=== PATIENT | male | born 1945 | race Caucasian/White ===

== ENCOUNTER 2020-03-19 14:06 | Outpatient (CLI) | payer MEDICARE, SELFPAY ==
--- NOTE | ~2020-03-19 | XR_ITS ---
EXAMINATION: XR foot RT min 3V DATE: 03/19/2020 14:42 INDICATION: Hallux valgus of right foot. TECHNIQUE: 3 views of right foot were obtained. COMPARISON: None. FINDINGS: There is moderate hallux valgus. No fracture. There is moderate osteoarthritis of first met atarsophalangeal joint and mild osteoarthritis of some of the midfoot joints and interphalangeal join ts. There are enthesophytes at the posterior and plantar aspects of calcaneal tuberosity. IMPRESSION: 1. Moderate hallux valgus. 2. Polyarticular osteoarthritis. Reviewed, dictated and finalized at location A. UITWARE BRUSHER
== END 2020-03-19 14:07 | disposition home or self-care (01) ==
LOC: CHSIMG 14:12
PROVIDERS: PCP Internal Medicine; Visit Provider Podiatrist
DX: M20.11 Hallux valgus (acquired), right foot (principal)
CPT/HCPCS: 73630

== ENCOUNTER 2020-04-02 10:45 | Outpatient (CLI) | payer MEDICARE, SELFPAY ==
--- NOTE | ~2020-04-02 | XR_ITS ---
EXAMINATION: XR chest 2V DATE: 04/02/2020 11:12 INDICATION: Hypertension. Preop. TECHNIQUE: Frontal and lateral views of the chest were obtained on 3 radiographs. COMPARISON: None. FINDINGS: A calcified left lung nodule and calcified left hilar lymph nodes are consistent with old g ranulomatous disease. No pleural effusion or pneumothorax. The heart size is normal. IMPRESSION: 1. No acute cardiopulmonary disease. Reviewed, dictated and finalized at location A. NEERING AND OPERATIONS DIRECTOR
--- NOTE | 2020-04-02 11:05 | ECG_ITS ---
Measurements Intervals [place] Rate: 52 P: 54 WI: 170 QRS: 34 QRSD: 116 T: 11 QT: 434 QTc: 406 Interpretive Statements SINUS BRADYCARDIA RSR' IN V1 OR V2, CONSIDER RIGHT VENTRICULAR HYPERTROPHY OR RIGHT VCD BORDERLINE ECG Electronically Signed On 04-02-2020 11:33:33 MANUFACTURING ASSOCIATE by Jackson Emmanuel D.O.
== END 2020-04-02 10:46 | disposition home or self-care (01) ==
PROVIDERS: PCP Internal Medicine; Visit Provider Internal Medicine
DX: Z01.818 Encounter for other preprocedural examination (principal); I10 Essential (primary) hypertension
CPT/HCPCS: 71046; 93005

== ENCOUNTER 2020-05-09 10:27 | Outpatient (CLI) | payer MEDICARE, SELFPAY ==
--- NOTE | ~2020-05-09 | XR_ITS ---
EXAMINATION: XR foot RT min 3V EXAM DATE: 05/09/2020 10:53 INDICATION: Post Op Bunion. TECHNIQUE: Right foot dorsoplantar, lateral and oblique projections obtained and reviewed. Compariso n is made to prior examination from 03/19/2020. FINDINGS: Interval surgical changes about the right 1st metatarsophalangeal joint with osteotomies a nd fixation hardware, bunionectomy. There is moderate 1st MTP primary osteoarthritis. There are no b summer erosions identified. IMPRESSION: Right 1st MTP surgical changes. Reviewed, dictated and finalized at location B. SS SERVICES REPRESENTATIVE
== END 2020-05-09 10:28 | disposition home or self-care (01) ==
LOC: CHSIMG 10:29
PROVIDERS: PCP Internal Medicine; Visit Provider Podiatrist
DX: M79.671 Pain in right foot (principal); M20.11 Hallux valgus (acquired), right foot
CPT/HCPCS: 73630

== ENCOUNTER 2020-06-08 10:18 | Outpatient (CLI) | payer MEDICARE, SELFPAY ==
--- NOTE | ~2020-06-08 | XR_ITS ---
EXAMINATION: XR foot RT min 3V EXAM DATE: 06/08/2020 10:47 INDICATION: Post bunion removal 04/24/20. TECHNIQUE: Right foot dorsoplantar, lateral and oblique projections obtained and reviewed. Compariso n is made to prior examination from 05/09/2020. FINDINGS: There is continued interval healing of the right 1st metatarsal bunionectomy, osteotomy. Th e 2 screws bridging the site are intact. There is also proximal phalangeal osteotomy with supporting clips. There is mild to moderate 1st metatarsophalangeal joint primary osteoarthritis. There are no b summer erosions identified. IMPRESSION: Surgical changes right 1st MTP region, with continued interval healing. Reviewed, dictated and finalized at location A. HT RADIO OFFICER IMPRESSION: Surgical changes right 1st MTP region, with continued interval hea ling.
== END 2020-06-08 10:19 | disposition home or self-care (01) ==
LOC: CHSIMG 10:19
PROVIDERS: PCP Internal Medicine; Visit Provider Podiatrist
DX: Z98.890 Other specified postprocedural states (principal); M21.6X1 Other acquired deformities of right foot
CPT/HCPCS: 73630

== ENCOUNTER 2020-11-26 10:21 | Outpatient (CLI) | payer MEDICARE, SELFPAY ==
--- NOTE | ~2020-11-26 | US_ITS ---
EXAMINATION: US carotid duplex BI DATE: 11/26/2020 10:45 INDICATION: Carotid bruit TECHNIQUE: Grayscale, color Doppler, and pulsed Doppler images of the cervical carotid arteries were obtained. The degree of vessel stenosis is placed in one of the following categories: normal, <50%, 5 0-69%, >=70% but less than near-occlusion, near-occlusion, or total occlusion. Note that percent sten osis relative to normal distal artery lumen diameter is indirectly measured from velocity measurement s as described by Ronn, et al. Radiology 2003; [id number]:340-346. COMPARISON: None. FINDINGS: RIGHT: The right common carotid artery (CCA) peak systolic velocity (PSV) is 95 cm/s. The right internal car otid artery (ICA) PSV is 80 cm/s. The right ICA end-diastolic velocity (EDV) is 16 cm/s. The right IC A/CCA PSV ratio is 0.8. Grayscale and color Doppler images yield an estimate of <50% diameter reducti on from plaque in the ICA. The external carotid artery (ECA) PSV is 71 cm/s. There is antegrade flow in the right vertebral artery. LEFT: The left CCA PSV is 126 cm/s. The left ICA PSV is 79 cm/s. The left ICA EDV is 12 cm/s. The left ICA/ CCA PSV ratio is 0.6. Grayscale and color Doppler images yield an estimate of <50% diameter reduction from plaque in the ICA. The ECA PSV is 94 cm/s. There is antegrade flow in the left vertebral artery . IMPRESSION: 1. <50% stenosis from minimal plaque in the right internal carotid artery. 2. <50% stenosis from minimal plaque in the left internal carotid artery. Reviewed, dictated and finalized at location A.
== END 2020-11-26 10:22 | disposition home or self-care (01) ==
LOC: CHSIMG 10:23
PROVIDERS: PCP Internal Medicine; Visit Provider Internal Medicine
DX: R09.89 Other specified symptoms and signs involving the circulatory and respiratory systems (principal)
CPT/HCPCS: 93880

== ENCOUNTER 2020-12-05 09:51 | Outpatient (CLI) | payer MEDICARE, SELFPAY ==
--- NOTE | ~2020-12-05 | US_ITS ---
EXAMINATION: US retroperitoneal comp EXAM DATE: 12/05/2020 10:17 INDICATION: Chronic kidney disease. TECHNIQUE: Multiple grayscale and Doppler images of the kidneys were obtained (by a technologist who performed the scan) and subsequently reviewed. There is no prior study for comparison. FINDINGS: Right kidney: There is normal contour and echogenicity. It measures 10.9 x 4.5 x 5.2 centimeters. T here are no focal renal lesions identified. There is no hydronephrosis. Left kidney: There is normal contour and echogenicity. It measures 10.8 x 4.3 x 4.9 centimeters. Th ere are no focal renal lesions identified. There is no hydronephrosis. Bladder unremarkable. Prevoid bladder volume 87 mL, postvoid bladder volume 37 mL. IMPRESSION: 1. Sonographically unremarkable kidneys. 2. Small amount of post void residual. Reviewed, dictated and finalized at location A.
== END 2020-12-05 09:52 | disposition home or self-care (01) ==
LOC: CHSIMG 09:54
PROVIDERS: PCP Internal Medicine; Visit Provider Internal Medicine
DX: N18.2 Chronic kidney disease, stage 2 (mild) (principal); N40.0 Benign prostatic hyperplasia without lower urinary tract symptoms
CPT/HCPCS: 76770

== ENCOUNTER 2022-06-12 14:49 | Outpatient (CLI) | payer MEDICARE, SELFPAY ==
--- NOTE | ~2022-06-12 | XR_ITS ---
EXAMINATION: XR wrist LT min 3V DATE: 06/12/2022 15:09 INDICATION: Left wrist pain with lump at the lateral left wrist TECHNIQUE: Posteroanterior, ulnar deviation, oblique, and lateral views of the left wrist were obtain ed. COMPARISON: none FINDINGS: Alignment is normal. No fracture. Polyarticular osteoarthritis at the left wrist and visualized hand, severe at the first carpometacarpal joint and otherwise mild. Mild soft tissue swelling along the ul kirstie aspect of the distal forearm. IMPRESSION: 1. Polyarticular osteoarthritis, severe at the first carpometacarpal joint and otherwise mild. Reviewed, dictated and finalized at location L. NSING ENGINEER
== END 2022-06-12 14:50 | disposition home or self-care (01) ==
LOC: CHSIMG 14:53
PROVIDERS: PCP Internal Medicine; Visit Provider Nurse Practitioner Family
DX: M25.532 Pain in left wrist (principal); M19.032 Primary osteoarthritis, left wrist
CPT/HCPCS: 73110

== ENCOUNTER 2022-07-12 06:42 | Outpatient (CLI) | payer MEDICARE, SELFPAY ==
--- NOTE | ~2022-07-12 | MR_ITS ---
MRI of the left wrist Technique: Coronal proton-density and proton density fat sat images, and axial and sagittal proton-de nsity and proton-density fat-sat images were acquired. Clinical History: Posterior wrist pain Findings: Scapholunate ligament is intact, and there is no widening of the scapholunate interval. Cee otriquetral ligament is intact. TFCC appears intact. There is moderate degenerative change at the first CMC joint. There is probable enchondroma at the pr oximal first metacarpal shaft. No endosteal scalloping or pathologic fracture evident. Remaining bone marrow signals are unremarkable. Remaining joint spaces are preserved. Flexor and extensor tendons are intact. There is soft tissue edema over the dorsal, ulnar aspect of t he wrist. Small distal radial ulnar joint effusion present, probable mild degenerative change. IMPRESSION: Small distal radial ulnar joint effusion with soft tissue edema over the dorsal, ulnar aspect of the wrist. These findings are somewhat nonspecific. Probable mild degenerative change at the DRUJ. Moderate osteoarthritis of the first CMC joint. Probable enchondroma of the proximal first metacarpal shaft. Reviewed, dictated and finalized at location . CE PROFESSIONAL IMPRESSION: Small distal radial ulnar joint effusion with soft tissue edema over the dorsal , ulnar aspect of the wrist. These findings are somewhat nonspecific. Probable mild degenerative change at the DRUJ. Moderate osteoarthritis of the first CMC joint. Probable enchondroma of the proximal first metacarpal shaft.
== END 2022-07-12 06:43 | disposition home or self-care (01) ==
PROVIDERS: PCP Internal Medicine; Visit Provider Internal Medicine
DX: M25.532 Pain in left wrist (principal); M25.432 Effusion, left wrist; M79.89 Other specified soft tissue disorders
CPT/HCPCS: 73221

== ENCOUNTER 2022-12-22 14:34 | Outpatient (CLI) | payer MEDICARE, SELFPAY ==
--- NOTE | 2022-12-22 14:41 | ECHO_ITS ---
Patient Info Name: Antelmo Martínez Age: 77 years : 1945 Gender: Male Ht: 71 in Wt: 234 lbs BSA: 2.34 m2 HR: 74 bpm BP: 161 / 93 mmHg Heart Rhythm: Atrial Fibrillation Technical Quality: Good Exam Date: 12/22/2022 2:34 PM Exam Location: [facility], [place] Patient Status: Outpatient Admit Date: 12/22/2022 Staff Ordering Physician: Kaden Green MD Manager Retention: Tenisha Rodriguez RDCS Attending Provider: Kaden Green MD Referring Physician: Peter AMADO; Exam Type: CA echo doppler color flow Study Info Indications - new onset A fib Complete two-dimensional, color flow and Doppler transthoracic echocardiogram is performed. Summary 1. Complete two-dimensional, color flow and Doppler transthoracic echocardiogram is performed. 2. Left ventricular chamber dimension is mildly enlarged. 3. Left ventricular systolic function is normal, estimated at 60-65%. 4. The left ventricular diastolic function is normal. 5. E/e' 6 is not elevated. 6. Atrial fibrillation. 7. Left atrial chamber dimension is moderately enlarged. 8. There is mild aortic valve sclerosis. 9. There is mild aortic valve regurgitation. 10. There is mild to moderate mitral valve regurgitation. 11. There is mild tricuspid valve regurgitation. 12. No pulmonary hypertension, estimated pulmonary arterial systolic pressure is 27 mmHg. 13. There is trace pulmonic regurgitation. Left Ventricle E/e' 6 is not elevated. Atrial fibrillation. Left ventricular chamber dimension is mildly enlarged. Left ventricular systolic function is normal, estimated at 60-65%. The left ventricular diastolic function is normal. Right Ventricle Right ventricular systolic function is normal and with normal TAPSE 2.7 cm. Right ventricular chamber dimension is normal. Left Atria Left atrial chamber dimension is moderately enlarged. Right Atria Right atrial chamber dimension is normal. Aortic Valve The aortic valve is trileaflet. There is mild aortic valve sclerosis. There is no aortic valve stenosis. There is mild aortic valve regurgitation. Pulmonic Valve There is trace pulmonic regurgitation. Mitral Valve There is no mitral valve stenosis. There is mild to moderate mitral valve regurgitation. Tricuspid Valve There is mild tricuspid valve regurgitation. No pulmonary hypertension, estimated pulmonary arterial systolic pressure is 27 mmHg. Pericardium/Pleural There is no pericardial effusion. Inferior Vena Cava Normal inferior vena cava with >50% collapse upon inspiration consistent with normal right atrial pressure, 5 mmHg. Aorta The aortic root size at the sinus of Valsalva is normal. Left Ventricular Outflow Tract Name Value Normal LVOT 2D LVOT Diameter 2.2 cm LVOT Doppler LVOT Peak Velocity 79 cm/s LVOT Peak Gradient 2 mmHg LVOT Mean Gradient 1 mmHg LVOT VTI 19 cm LVOT VTI/AV VTI Ratio 0.6 LVOT Stroke Volume 70 ml Pulmonic Valve Name Value Normal -------
== END 2022-12-22 14:35 | disposition home or self-care (01) ==
LOC: CHSIMG 14:35
PROVIDERS: PCP Internal Medicine; Visit Provider Internal Medicine
DX: I48.91 Unspecified atrial fibrillation (principal); I08.3 Combined rheumatic disorders of mitral, aortic and tricuspid valves
CPT/HCPCS: 93306

== ENCOUNTER 2023-04-27 03:55 | Day surgery (SDC) | payer MEDICARE, SELFPAY ==
--- NOTE | 2023-04-27 08:30 | ECG_ITS ---
Measurements Intervals [place] Rate: 52 P: MA: 0 QRS: 0 QRSD: 118 T: 21 QT: 460 QTc: 430 Interpretive Statements ATRIAL FIBRILLATION WITH SLOW VENTRICULAR RESPONSE MODERATE INTRAVENTRICULAR CONDUCTION DELAY [110+ ms QRS DURATION] ABNORMAL ECG COMPARED TO ECG 04/02/2020 11:03:45 ATRIAL FIBRILLATION NOW PRESENT INTRAVENTRICULAR CONDUCTION DELAY NOW PRESENT Electronically Signed On 04-27-2023 12:47:06 IT PROJECT MANAGER by Jak Orlando M.D.
[2023-04-27 08:45] VITALS: BP 123/89; PULSE 52; RESP 16; TEMP 36.3; O2SAT 98; BMI 32.1
[2023-04-27 09:13] LABS: Anion Gap 9 mmol/L (8-16); Blood Urea Nitrogen 28 mg/dL (9-20); Calcium 9.5 mg/dL (8.4-10.2); Carbon Dioxide 26 mmol/L (22-30); Chloride 107 mmol/L (98-107); Estimated CRCL calculation 49 ml/min; Estimated Glomerular Filt Rate 46; Glucose 97 mg/dL (65-110); Magnesium 2.2 mg/dL (1.6-2.3); Potassium 4.6 mmol/L (3.4-5.0); Sodium 142 mmol/L (137-145)
--- NOTE | 2023-04-27 10:13 | SUR.OPER ---
MD reviewed home medications and spoke with patient and spouse. HR & rhythm is Afib in 40-60s with stable BP. MD discussing risks vs benefits since patient has no symptoms. MD decided to cancel cardioversion after talking to patient since the Afib isn't affecting his daily life. Patient will be discharged home. No sedation medication given.
--- NOTE | 2023-04-27 10:33 | WPDMODSED ---
Moderate Sedation Note-Pt Data Patient Data Diagnosis: Atrial fibrillation Present Complaint: Atrial fibrillation Procedure to be performed/Plan: Cardioversion Allergies Allergy/AdvReac Type Severity Reaction Status Date / Time hydralazine AdvReac Cramping Verified 04/27/23 08:42 of the Muscles Home Medications Medication Instructions Recorded Confirmed Type amlodipine 10 mg tablet 10 mg PO DAILY 04/24/23 04/24/23 History apixaban 5 mg tablet (Eliquis) 5 mg PO BID 04/24/23 04/24/23 History coenzyme Q10 200 mg capsule (Co 200 mg PO DAILY 04/24/23 04/24/23 History Q-10) geriatric multivitamin-min 1 tablet PO DAILY 04/24/23 04/24/23 History indapamide 1.25 mg tablet 1.25 mg PO EVERY OTHER DAY 04/24/23 04/24/23 History losartan 100 mg tablet 100 mg PO DAILY 04/24/23 04/24/23 History nebivolol 20 mg tablet 40 mg PO DAILY 04/24/23 04/24/23 History omega 5-lgm-pjv-fish oil 1,200 mg 2 cap PO DAILY 04/24/23 04/24/23 History (144 mg-216 mg) capsule (Fish Oil) pravastatin 40 mg tablet 40 mg PO HS 04/24/23 04/24/23 History Sedation/Anesthesia: No previous sedation/anesthesia problems (including family history). [facility] Family History Family History (Updated 06/27/16 @ 10:29 by DOCTOR UNKNOWN) Other Family history of elevated blood lipids Hypertension Social History Social History Smoking packs per day: 1 Smoking cigarettes per day: 20.0 Years smoked: 40 Smoking pack-years: 40.00 Smoking status: Former smoker Tobacco type: cigarettes Smoking end date: 05/18/82 Alcohol intake: never Substance use: never Substance use type: does not use Living arrangements: with family Spiritual care concerns: No Mod Sed Physical Exam Physical Exam Pre Procedural Exam: Normal: Appearance, Eyes, Ears, Nose, Neck, Throat, Airway, Lungs, Heart Size, Neuro Exam, Extremities and Skin and Variation: Heart Rate (Bradycardia) and Heart Rhythm (Irregularly irregular) Hours since solid foods: 12 Hours since liquid intake: 12 Mallampati Classification: class II Internal Medicine - PN: Obj Da Vital Signs Vital Signs: Vital Signs - 24 hr 04/27/23 08:45 Temperature 36.3 C L Pulse Rate 52 L Respiratory Rate 16 Blood Pressure 123/89 Pulse Oximetry 98 Oxygen Delivery Room Air Labs 04/27/23 08:56 Labs: Laboratory Results - last 24 hr 04/27/23 08:56 Sodium 142 Potassium 4.6 Chloride 107 Carbon Dioxide 26 Anion Gap 9 BUN 28 H Creatinine 1.50 H Estim Creat Clear Calc 49 Estimated GFR 46 L Glucose 97 Calcium 9.5 Magnesium 2.2 ASA Classification/Sedation ASA Classification/Sedation ASA Class: II Emergent: No Risks: Risks, benefits and alternatives explained and patient/family accepted plan for sedation. Patient re-evaluated immediately prior to sedation. Update H&P: Patient is completely asymptomatic. He does have some bradycardia with heart rates in the 40s and 50s. He is on nebivolol only. He has no signs or symptoms of heart failure and is active and not having any issues otherwise of bradycardia. Heart rate is well controlled obviously and there is concern that attempted cardioversion may cause significant complication including severe/marked bradycardia or even asystole. Because he is asymptomatic and his need for anticoagulation will not change whether not cardiovert him or not, 80 talk to him as well as the patient's family and decision is made to abort cardioversion at this point. He is comfortable with this decision
== END 2023-04-27 10:30 | disposition home or self-care (01) ==
PROVIDERS: PCP Internal Medicine; Visit Provider Internal Medicine Cardiovascular Disease
PROC: 5A2204Z Restoration of Cardiac Rhythm, Single (ICD-10-PCS; principal; 2023-04-27 10:00)
DX: I48.91 Unspecified atrial fibrillation (principal); I10 Essential (primary) hypertension; Z79.01 Long term (current) use of anticoagulants; Z53.8 Procedure and treatment not carried out for other reasons
CPT/HCPCS: 36415; 80048; 83735; 92960; 99213; G0463; J0461; J2250; J3010; J7030

== ENCOUNTER 2023-05-27 09:09 | Outpatient (CLI) | payer MEDICARE, SELFPAY ==
--- NOTE | 2023-06-18 16:01 | WPDSLEEPSTUD ---
Sleep Study Date of Study: 05/27/23 Ordering Provider: Farzad Barth APRN Interpreting Physician: Mercy Saunders MD Sleep Study Type: CPAP Titration Height: 1.85 m Weight: 106.594 kg Body Mass Index: 30.9 Neck Circumference (inches): 17 [place]: 8 Reason for Sleep Study Obstructive sleep apnea, cannot tolerate auto PAP which he used for a month and quit due to sensation of suffocation He presents now for a CPAP titration. * 01/28/2023, [place] home sleep test, AHI 18.7, 25 obstructive, 34 central, 1 mixed, 93 hypopneas, 39 minutes spent below 90%, lowest 83% average 93%. Sleep History Antelmo Martínez is a 77-year-old man with ANTHONY diagnosed on a [facility] sleep test, was not able to tolerate using autoPAP because he felt like he was suffocating. He was having problems controlling his blood pressure but with increased medication, his blood pressure improved. There is a family history of sleep issues, his brother uses CPAP and his brother also had heart problems. The patient does not awaken from sleep feeling short of breath. He rarely awakens at night with heartburn, belching or coughing. He occasionally snores and occasionally this is loud enough that others complain about it. He occasionally has difficulty sleeping when he has a cold. He does not wake up gasping for breath at night or have breathing problems at night reported to him by others. He does not sweat excessively at night or notice his heart pounding or beating irregularly at night. He rarely falls asleep during the day, never falls asleep involuntarily or while driving. He does not have loss of muscle tone with strong emotion. He does not have daytime difficulties due to excessive sleepiness. He is retired. He does not feel paralyzed on waking or falling asleep nor does he have vivid dreamlike scenes upon awakening or falling asleep. He does not feel afraid to go to sleep. He rarely has nightmares. He rarely recalls his dreams. He occasionally has racing thoughts. He does not feel sad or depressed. He rarely has anxiety. He does not notice parts of his body jerking nor does he kick at night. He does not have crawling or aching feelings in his legs. He does not have any kind of leg pain at night. He does not have morning jaw pain. He does not grind his teeth during sleep. He is not bothered by pain during the day nor is he awakened by pain during the night. He rarely wakes up feeling stiff in the morning, rarely wakes up with sore achy muscles or pain in the neck and spine. Normal bedtime is 10:30 p.m., he is not certain how long it takes him to fall asleep but he does typically wake twice during the night to go to the bathroom. He is able to return to sleep quickly. His normal wake time is 7:00 a.m.. He keeps the same schedule on weekends. He estimates getting 8 hours of sleep at night. He sometimes takes naps in the afternoon or evening. He may feel refreshed after short nap lasting 10 or 15 minutes. He usually awakens feeling refreshed. He rarely has a morning headache and he rarely has heartburn at night. Habits: Quit tobacco 30 years ago. Caffeine, 2 cups per day. No alcohol or recreational substances. [facility] Past Medical History Medical History Afib BPH (benign prostatic hyperplasia) CKD (chronic kidney disease) HLD (hyperlipidemia) HTN (hypertension) ANTHONY (obstructive sleep apnea) SLE (systemic lupus erythematosus) Family History Family History Other Family history of elevated blood lipids Hypertension Social History Social History Smoking packs per day: 1 Smoking cigarettes per day: 20.0 Years smoked: 40 Smoking pack-years: 40.00 Smoking status: Former smoker Tobacco type: cigarettes Smoking end date: 05/18/82 Alcohol intake: never Substance use: nev
[2023-06-18 19:31] VITALS: BMI 30.9
== END 2023-05-28 07:41 | disposition home or self-care (01) ==
PROVIDERS: PCP Internal Medicine; Visit Provider Nurse Practitioner Family
DX: G47.33 Obstructive sleep apnea (adult) (pediatric) (principal)
CPT/HCPCS: 95811

== ENCOUNTER 2024-04-11 06:00 | Day surgery (SDC) | payer MEDICARE, SELFPAY ==
[2024-03-28 10:13] VITALS: BMI 32.8
[2024-04-11 06:48] VITALS: BP 115/77; PULSE 64; RESP 16; TEMP 36.7; O2SAT 98
--- NOTE | 2024-04-11 06:52 | P.PNAN_ITS ---
Anes - Initial Pre Proc Eval Procedure: Operation Date: 04/11/24 08:15 Proposed Procedures p Screening Colonoscopy - Ascencion Chandler DO Date/Time: 04/11/24 06:52 Surgeon: Ascencion Chandler DO Pre Op Diagnosis: Neoplasm Screening Patient Data Age: 78 Gender: M Height: 1.83 m Weight: 108.95 kg Last Vital Signs Temp 36.7 C 04/11/24 06:48 Pulse 64 04/11/24 06:48 Resp 16 04/11/24 06:48 BP 115/77 04/11/24 06:48 Pulse Ox 98 04/11/24 06:48 O2 Del Method Room Air 04/11/24 06:48 Allergies Allergy/AdvReac Type Severity Reaction Status Date / Time hydralazine AdvReac Cramping Verified 04/11/24 06:46 of the Muscles Home Medications Medication Instructions Recorded Confirmed Type amlodipine 10 mg tablet 10 mg PO DAILY 04/24/23 04/11/24 History apixaban 5 mg tablet (Eliquis) 5 mg PO BID 04/24/23 04/11/24 History coenzyme Q10 200 mg capsule (Co 200 mg PO DAILY 04/24/23 04/11/24 History Q-10) indapamide 1.25 mg tablet 1.25 mg PO EVERY OTHER DAY 04/24/23 04/11/24 History losartan 100 mg tablet 100 mg PO DAILY 04/24/23 04/11/24 History omega 3-hpc-ude-fish oil 1,200 mg 2 cap PO DAILY 04/24/23 04/11/24 History (144 mg-216 mg) capsule (Fish Oil) pravastatin 40 mg tablet 40 mg PO HS 04/24/23 04/11/24 History vklqlgzl-ws-agabq 300 mcg-K 60 1 tablet PO DAILY 07/03/23 04/11/24 History mcg-lycop 600 mcg-lutein 300 mcg tablet (Centrum Silver Men) nebivolol 20 mg tablet 5 mg PO DAILY 10/13/23 04/11/24 History Patient hx anesthesia problems: none Family hx anesthesia problems: none Results Review: All pre-operative results and documents have been reviewed as part of the pre- operative evaluation. [facility] Past Medical History Medical History Afib BPH (benign prostatic hyperplasia) CKD (chronic kidney disease) HLD (hyperlipidemia) HTN (hypertension) ANTHONY (obstructive sleep apnea) SLE (systemic lupus erythematosus) Family History Family History Other Family history of elevated blood lipids Hypertension Social History Social History Smoking packs per day: 1 Smoking cigarettes per day: 20.0 Years smoked: 20 Smoking pack-years: 20.00 Smoking status: Former smoker Tobacco type: cigarettes Smoking end date: 05/18/82 Alcohol intake: never Substance use: never Substance use type: does not use Living arrangements: with family Spiritual care concerns: No Anes - Eval Final PreProcedure Day of Procedure 04/11/24 06:52 Patient weight: obese Heart: regular rate and rhythm Lungs: clear to auscultation Airway: Mallampati scale class II Neurological: alert and oriented Last oral intake: >/= 8 hours ASA classification: III Emergent: no Anesthetic plan: proceed Anesthesia type and monitoring: general GIVS and standard monitoring Results Review: All pre-operative results and documents have been reviewed as part of the pre- operative evaluation. Informed Consent: The patient's anesthetic plan and its attendant risks and benefits were discussed with the patient/family/POA. Questions were solicited and answers provided to the satisfaction of the patient/family/POA.
[2024-04-11] MEDS: LACTATED RINGERS 1,000 ML 150 ML IV CONT (06:55)
--- NOTE | 2024-04-11 08:03 | P.HP_ITS ---
H&P: HPI History of Present Illness Date/Time: 04/11/24 08:03 Chief Complaint: Screening for colorectal cancer Narrative: this is a 78-year-old man who presents for colonoscopy. His last colonoscopy was 10 years ago and was normal. He denies any hematochezia or melena. He denies any family history of colon cancer. Review of Systems Review of Systems: All systems reviewed & are unremarkable except as noted in HPI and below Constitutional: Constitutional: Denies chills, Denies fever(s), Denies headache(s) and Denies weight loss Eyes: Eyes: Denies change in vision ENT: Denies dizziness, Denies headache(s), Denies neck mass and Denies throat swelling Cardiovascular: Cardiovascular: Denies chest pain, Denies lightheadedness and Denies dyspnea Respiratory: Respiratory: Denies cough, Denies dyspnea and Denies wheezing Gastrointestinal: Gastrointestinal: Denies abdominal pain, Denies change in bowel habits, Denies nausea and Denies vomiting Genitourinary: Genitourinary: Denies hematuria and Denies dysuria Musculoskeletal: Musculoskeletal: Reports as per HPI Integumentary/Breasts: Skin/Breast: Reports as per HPI Neurologic: Denies dizziness and Denies headache(s) Allergic/Immunologic: Allergic/Immunologic: Denies throat swelling and Denies wheezing FOR[facility]LY [facility] Past Medical History Medical History Afib BPH (benign prostatic hyperplasia) CKD (chronic kidney disease) HLD (hyperlipidemia) HTN (hypertension) ANTHONY (obstructive sleep apnea) SLE (systemic lupus erythematosus) Family History Family History Other Family history of elevated blood lipids Hypertension Social History Social History Smoking packs per day: 1 Smoking cigarettes per day: 20.0 Years smoked: 20 Smoking pack-years: 20.00 Smoking status: Former smoker Tobacco type: cigarettes Smoking end date: 05/18/82 Alcohol intake: never Substance use: never Substance use type: does not use Living arrangements: with family Spiritual care concerns: No Meds Home Medications and Allergies Home Medications Medication Instructions Recorded Confirmed Type amlodipine 10 mg tablet 10 mg PO DAILY 04/24/23 04/11/24 History apixaban 5 mg tablet (Eliquis) 5 mg PO BID 04/24/23 04/11/24 History coenzyme Q10 200 mg capsule (Co 200 mg PO DAILY 04/24/23 04/11/24 History Q-10) indapamide 1.25 mg tablet 1.25 mg PO EVERY OTHER DAY 04/24/23 04/11/24 History losartan 100 mg tablet 100 mg PO DAILY 04/24/23 04/11/24 History omega 6-xbk-pmh-fish oil 1,200 mg 2 cap PO DAILY 04/24/23 04/11/24 History (144 mg-216 mg) capsule (Fish Oil) pravastatin 40 mg tablet 40 mg PO HS 04/24/23 04/11/24 History zoxrehgv-fp-hdncb 300 mcg-K 60 1 tablet PO DAILY 07/03/23 04/11/24 History mcg-lycop 600 mcg-lutein 300 mcg tablet (Centrum Silver Men) nebivolol 20 mg tablet 5 mg PO DAILY 10/13/23 04/11/24 History Allergies Allergy/AdvReac Type Severity Reaction Status Date / Time hydralazine AdvReac Cramping Verified 04/11/24 06:46 of the Muscles Vital Signs Vital Signs - 24 hr 04/11/24 06:48 Temperature 98.1 F Pulse Rate 64 Respiratory Rate 16 Blood Pressure 115/77 Pulse Oximetry 98 Oxygen Delivery Room Air Exam Const: General: no acute distress and alert Orientation/consciousness: patient oriented x3 HENMT: Head: normocephalic and atraumatic Ears: hearing grossly normal bilaterally Face/Nose/Sinus: Normal nares present Mouth: Yes Normal oral and palatal mucosa present Eyes: Periorbital: periorbital findings normal Sclera: sclerae normal EOM: EOMs intact bilaterally Neck: Neck: normal visual inspection, no lymphadenopathy and trachea midline Chest: Chest palpation & inspection: normal inspection of the chest Resp: Effort & Inspection: normal respiratory effort Auscultation: clear to auscultation bilaterally Cardio: Jugular venous distension: no JVD Rate: regular rate Rhythm: regular rhythm Heart sounds: S1 normal heart sound present and S2 normal heart sound present Peripheral pulses: Peripheral pulses 2+ throughout GI: Inspection: normal to inspection GI Palp: Yes Soft to palpation, No Tenderness to palpation present (GI), No Guarding due to palpation present (GI) and No Rebound tenderness present Percussion: Yes normal to percussion Auscultation: normal bowel sounds : General: Yes no CVA tenderness Back/Spine/Pelvis: Back: no CVA tenderness Neuro: General: patient oriented x3, no focal motor deficits and CN's II-XI intact bilaterally Cognition (Neuro): normal cognition Speech: normal speech Motor exam (neuro): 5/5 motor strength present throughout Extrem: General: capillary refill normal and no clubbing, cyanosis or edema Assessment and Plan Assessment and plan (1) Screening for colorectal cancer: Code(s): Z12.11 - Encounter for screening for malignant neoplasm of colon; Z12.12 - Encounter for screening for malignant neoplasm of rectum Status: Acute Assessment and Plan: I have recommended colonoscopy. I have discussed the procedure, risks, benefits, and alternatives. Questions were answered. Patient is agreeable to proceed.
[2024-04-11 08:35] VITALS: BP 111/70; PULSE 69; RESP 16; O2SAT 96
[2024-04-11 08:45] VITALS: BP 111/73; PULSE 68; RESP 16; O2SAT 98
[2024-04-11 08:55] VITALS: BP 109/81; PULSE 55; RESP 16; O2SAT 97
--- NOTE | 2024-04-11 09:37 | WPDANESPN ---
Anes - Prog Note Post-Op Date/Time: 04/11/24 09:37 Cardiovascular status: normal Respiratory status: normal Airway patency: baseline Mental status: baseline Post-Op hydration status: normal Vital Signs: Last Vital Signs Temp 36.7 C 04/11/24 06:48 Pulse 55 L 04/11/24 08:55 Resp 16 04/11/24 08:55 BP 109/81 04/11/24 08:55 Pulse Ox 97 04/11/24 08:55 O2 Del Method Room Air 04/11/24 08:55 Pain Score (VAS): 0 I/O: Intake & Output 04/10/24 04/11/24 04/11/24 23:59 07:59 15:59 Intake Total 500 Balance 500 Post-procedural complaints: none Patient Feedback: Patient satisfied with anesthetic care. Other Findings: Patient vital signs back to baseline. Patient denies nausea and vomiting. Patient's pain under control. Patient OK for discharge.
== END 2024-04-11 09:04 | disposition home or self-care (01) ==
PROVIDERS: PCP Internal Medicine; Visit Provider Surgery
PROC: 0DJD8ZZ Inspection of Lower Intestinal Tract, Via Natural or Artificial Opening Endoscopic (ICD-10-PCS; CPT 45378; principal; 2024-04-11 08:15)
DX: Z12.11 Encounter for screening for malignant neoplasm of colon (principal); K57.30 Diverticulosis of large intestine without perforation or abscess without bleeding; K64.8 Other hemorrhoids
CPT/HCPCS: 45378

== ENCOUNTER 2024-06-24 07:57 | Outpatient (CLI) | payer MEDICARE, SELFPAY ==
--- NOTE | ~2024-06-24 | US_ITS ---
EXAMINATION: US renal BI DATE: 06/24/2024 08:24 INDICATION: Dates IIIa chronic kidney disease TECHNIQUE: Multiple ultrasound grayscale images of the kidneys were obtained. COMPARISON: None. FINDINGS: The right kidney measures 11.2 x 5.0 x 4.7 cm. The left kidney measures 11.0 x 4.2 x 4.7 cm. The kidn eys demonstrate normal echogenicity. There is no hydronephrosis in either kidney. No stones identifi ed. The bladder is normal. IMPRESSION: 1. Normal kidneys without hydronephrosis. Reviewed, dictated and finalized at location B. ITY ASSURANCE SUPERVISOR FINAL
--- OUTSIDE RECORDS SUMMARY | 2024-06-24 08:00 | XMS_ITS ---
Author Organization [facility] Address [address] [place], [place] [id number] Care Team Providers Care Architecture Manager Name Role Phone GIA CALVIN Unavailable [phone] Kaden Green Unavailable Unavailable MARINE STERLING Unavailable [phone] Allergies Allergen (clinical drug ingredient) Drug/Non Drug Allergy documented on EMR Reaction Allergy Type Onset Date Status hydralazine Hydralazine Unknown Drug Allergy Act lilian REASON FOR VISIT Spot on right foot where previous surgery Medications Medication SIG (Take, Route, Frequency, Duration) Notes Start Date End Date Status ubidecarenone 100 MG Oral Capsule ORAL ubidecarenone 100 MG Oral CapsuleOriginal Medicationubidecarenone 100 MG Oral Capsule *Reorder from [employer] for eRx and Interaction Alerts* 0 Not-Taking Osmotic 24 HR nifedipine 30 MG Extended Release Oral Tablet ORAL Osmotic 24 HR nifedipine 30 MG Extended Release Oral TabletOriginal MedicationOsmotic 24 HR nifedipine 30 MG Extended Release Oral Tablet *Reorder from [employer] for eRx and Interaction Alerts* 0 Not-Taking quinapril 10 MG Oral Tablet ORAL quinapril 10 MG Oral TabletOriginal Medicationquinapril 10 MG Oral Tablet *Reorder from [employer] for eRx and Interaction Alerts* 0 Not-Taking Pravastatin Sodium 20 MG Oral Tablet ORAL pravastatin sodium 20 MG Oral TabletOriginal Medicationpravastatin sodium 20 MG Oral Tablet *Reorder from [employer] for eRx and Interaction Alerts* 0 Active Nebivolol HCl 5 MG 1 tablet Orally Once a day Active Losartan Potassium 100 MG 1 tablet Orally Once a day Active Amlodipine & Diet Manage Prod Active Centrum Silver 50+Men - as directed Orally Active Eliquis 5 MG as directed Orally Active Indapamide 1.25 MG 1 tablet in the morning Orally Once a day Active Fish Oil 1200 MG 1 capsule Orally Three times a day Active Co Q 10 100 MG as directed Orally Active Vital Signs Height 73.00 in 03/31/2024 Weight 240 lbs 03/31/2024 BMI 31.66 kg/m2 03/31/2024 Height-cm 185.42 cm 03/31/2024 Weight-kg 108.86 kg 03/31/2024 Encounters Encounter Location Date Provider Diagnosis [facility] [address] [place], [place] [id number] 03/31/2024 MARINE STERLING Unspecified atherosclerosis of [place] arteries of extremities, bilateral legs I70.203 ; Acquired keratosis [keratoderma] palmaris et plantaris L85.1 ; Other hammer toe(s) (acquired), right foot M20.41 ; Other hammer toe(s) (acquired), left foot M20.42 ; Pain in right foot M79.671 and Pain in left foot M79.672 Assessments Encounter Date Diagnosis (ICD Code) Assessment Notes Treatment Notes Treatment Clinical Notes Section Notes 03/31/2024 Unspecified atherosclerosis of [place] arteries of extremities, bilateral legs (ICD-10 - I70.203) Patient educated on risks and aggravating factors of PVD, including conservative treatment options such as a diet and exercise regimen to aid in slowing progression of vascular disease 03/31/2024 Acquired keratosis [keratoderma] palmaris et plantaris (ICD-10 - L85.1) Pre-ulcerative keratoderma debrided sharply down to the level of healthy tissue using a 15 blade. After removal of overlying extensive hyperkeratosis, healthy tissue was noted and care was taken to assure that no undermining or probing was present. It should be noted that no probing was noted and no infection or drainage was noted. 03/31/2024 Other hammer toe(s) (acquired), right foot (ICD-10 - M20.41) The patient was educated regarding how to mechanically stabilize their deformity. The patient was given education about shoe recommendations specific for the condition. The patient was educated about custom orthotics and how appropriate shoes and orthotics can prevent further worsening of the deformity. The patient was educated about how bad shoe habits can worsen the condition. NSAIDS, P.T., injections and other conservative treatments were discussed. Both surgical and non surgical treatments were discussed, but conservative options were emphasized. 03/31/2024 Other hammer toe(s) (acquired), left foot (ICD-10 - M20.42) 03/31/2024 Pain in right foot (ICD-10 - M79.671) 03/31/2024 Pain in left foot (ICD-10 - M79.672) Plan Of Treatment Treatment Notes Assessment Notes Unspecified atherosclerosis of [place] arteries of extremities, bilateral legs Patient educated on risks and aggravating factors of PVD, including conservative treatment options such as a diet and exercise regimen to aid in slowing progression of vascular disease Acquired keratosis [keratode rma] palmaris et plantaris Pre-ulcerative keratoderma debrided sharply down to the level of healthy tissue using a 15 blade. After removal of overlying extensive hyperkeratosis, healthy tissue was noted and care was taken to assure that no undermining or probing was present. It should be noted that no probing was noted and no infection or drainage was noted. Other hammer toe(s) (acquired), right fo ot The patient was educated regarding how to mechanically stabilize their deformity. The patient was given education about shoe recommendations specific for the condition. The patient was educated about custom orthotics and how appropriate shoes and orthotics can prevent further worsening of the deformity. The patient was educated about how bad shoe habits can worsen the condition. NSAIDS, P.T., injections and other conservative treatments were discussed. Both surgical and non surgical treatments were discussed, but conservative options were emphasized. Next Appt Details Follow Up: 3 Months, Reason: Provider Name:GIA CALVIN, 01:20:00 PM, [address] [place] [address], [phone], Progress Notes * KOREY CAMPBELL ADOB:1945 (78 yo M)Acc No.[id number]:03/31/2024 Progress Notes Patient: KOREY BE Provider: Kenton STERLING :1945 A ge:78 Y S ex:Male Date:03/31/2024 Address:[address], [address], [place] [address] Subjective: * Chief Complaints: * 1 . Spot on right foot where previous surgery. * HPI: H PI: New Complaint P neeliam was last seen in our practice over three years ago., Patient complains of an issue to a spot on the ball of the right foot below the great toe. Patient states he had bunionectomy surgery on that foot years ago with this practice. The spot does not hurt to walk on with shoes but hurts when the patient is barefoot. , Duration of problem is a couple of weeks., MA: phillip. * ROS: G eneral / Constitutional: Patient denies w eakness. R espiratory: Patient denies c hronic cough, shortness of breath, sputum production. C ardiovascular: Patient denies c hest pain, history of SC, irregular heartbeat. M usculoskeletal: Patient complains of h ammertoes. P eripheral Vascular: Patient denies b lanching of skin, cold extremities, decreased sensation in extremities. S kin: Patient complains of c alluses and corns. N eurologic: Patient denies d izziness, gait abnormality, headache. * Medical History: S leep apnea, High blood pressure. * Medications: T aking Fish Oil 1200 MG Capsule 1 capsule Orally Three times a day , Taking Co Q 10 100 MG Capsule as directed Orally , Taking Centrum Silver 50+Men - Tablet as directed Orally , Taking Eliquis 5 MG Tablet as directed Orally , Taking Losartan Potassium 100 MG Tablet 1 tablet Orally Once a day , Taking Amlodipine & Diet Manage Prod , Taking Indapamide 1.25 MG Tablet 1 tablet in the morning Orally Once a day , Taking Nebivolol HCl 5 MG Tablet 1 tablet Orally Once a day , Taking Pravastatin Sodium 20 MG Oral Tablet ORAL , Notes to Pharmacist: pravastatin sodium 20 MG Oral TabletOriginal Medicationpravastatin sodium 20 MG Oral Tablet *Reorder from [employer] for eRx and Interaction Alerts*, Not-Taking Osmotic 24 HR nifedipine 30 MG Extended Release Oral Tablet ORAL , Notes to Pharmacist: Osmotic 24 HR nifedipine 30 MG Extended Release Oral TabletOriginal MedicationOsmotic 24 HR nifedipine 30 MG Extended Release Oral Tablet *Reorder from [facility] for eRx and Interaction Alerts*, Not-Taking quinapril 10 MG Oral Tablet ORAL , Notes to Pharmacist: quinapril 10 MG Oral TabletOriginal Medicationquinapril 10 MG Oral Tablet *Reorder from [facility] for eRx and Interaction Alerts*, Not-Taking ubidecarenone 100 MG Oral Capsule ORAL , Notes to Pharmacist: ubidecarenone 100 MG Oral CapsuleOriginal Medicationubidecarenone 100 MG Oral Capsule *Reorder from [facility] for eRx and Interaction Alerts* * Allergies: H ydralazine: Allergy. Objective: * Vitals: S hoe Size: 14, Wt: 240 lbs, Wt-k.86 kg, Ht: 73.00 in, Ht-cm: 185.42 cm, BMI: 31.66 Index, Body Surface Area: 2.37. * Examination: P hysical Examination: V ascular: Dorsalis Pedis pulse noted at 1/4 right foot and 1/4 left foot and Posterior Tibial pulse noted at 1/4 right foot and 1/4 left foot, Capillary refill times noted to be less than three seconds x ten, Temperature gradient noted to be warm to cool to bilateral foot, pedal hair present to bilateral foot and no varicosities are noted Dermatologic: there are no open lesions, no signs of active clinical infection, no erythema noted, no ecchymoses, nails are at hygienic length x ten, hyperkeratotic lesions noted sub first metatarsal head bilateral foot Musculoskeletal: there is no pain to palpation onto nail plate x ten, no calf pain noted bilaterally, arch height noted at 2/5 non-weight bearing bilaterally, first metatarsophalangeal joint range of motion 30 deg non-weight bearing bilaterally, pain to palpation hyperkeratotic lesion sub first metatarsal head bilateral foot Neurology: protective sensation intact to light touch bilateral digits one through five, vibratory sensation intact to first metatarsophalangeal joint bilaterally. Assessment: * Assessment: 1. A cquired keratosis [keratoderma] palmaris et plantaris - L85.1 (Primary) 2 . U nspecified atherosclerosis of [place] arteries of extremities, bilateral legs - I70.203 ? 3 . O ther hammer toe(s) (acquired), right foot - M20.41 4 . O ther hammer toe(s) (acquired), left foot - M20.42 5 . P ain in right foot - M79.671 6 . P ain in left foot - M79.672 Plan: * Treatment: 2. U nspecified atherosclerosis of [place] arteries of extremities, bilateral legs Notes: Patient educated on risks and aggravating factors of PVD, including conservative treatment options such as a diet and exercise regimen to aid in slowing progression of vascular disease ? 3. O ther hammer toe(s) (acquired), right foot Notes: The patient was educated regarding how to mechanically stabilize their deformity. The patient was given education about shoe recommendations specific for the condition. The patient was educated about custom orthotics and how appropriate shoes and orthotics can prevent further worsening of the deformity. The patient was educated about how bad shoe habits can worsen the condition. NSAIDS, P.T., injections and other conservative treatments were discussed. Both surgical and non surgical treatments were discussed, but conservative options were emphasized. * Follow Up: 3 Months * Billing Information: * Visit Code: 38066 Office Visit, Est Pt., Level 3. * Procedure Codes: * TORIAL SPECIALIST Sign off status: Completed true * Provider: Kenton STERLING Date: 05/31/2023 Generated for Silvia hodge/Raya/Mery on: 0 06/24/2024 08:00 AM CURATORIAL SPECIALIST History and Physical Notes * HPI (History of Present Illness) Category Sub-Category Detail Notes Category Not es HPI New Complaint Patient was last seen in our practice over three years ago., Patient complains of an issue to a spot on the ball of the right foot below the great toe. Patient states he had bunionectomy surgery on that foot years ago with this practice. The spot does not hurt to walk on with shoes but hurts when the patient is barefoot. , Duration of problem is a couple of weeks., MA: mca Examination Category Sub-Category Detail Notes Category Not es Physical Examination Vascular: Dorsalis Pedis pulse noted at 1/4 right foot and 1/4 left foot and Posterior Tibial pulse noted at 1/4 right foot and 1/4 left foot, Capillary refill times noted to be less than three seconds x ten, Temperature gradient noted to be warm to cool to bilateral foot, pedal hair present to bilateral foot and no varicosities are noted Dermatologic: there are no open lesions, no signs of active clinical infection, no erythema noted, no ecchymoses, nails are at hygienic length x ten, hyperkeratotic lesions noted sub first metatarsal head bilateral foot Musculoskeletal: there is no pain to palpation onto nail plate x ten, no calf pain noted bilaterally, arch height noted at 2/5 non-weight bearing bilaterally, first metatarsophalangeal joint range of motion 30 deg non-weight bearing bilaterally, pain to palpation hyperkeratotic lesion sub first metatarsal head bilateral foot Neurology: protective sensation intact to light touch bilateral digits one through five, vibratory sensation intact to first metatarsophalangeal joint bilaterally
--- OUTSIDE RECORDS SUMMARY | 2024-06-24 08:01 | XMS_ITS | Patient Health Record ---
Author Organization [facility] Address [address] [place], [place] [id number] Care Team Providers Care Application Helper Name Role Phone GIA CALVIN Unavailable [phone] Kaden Green Unavailable Unavailable MARINE STERLING Unavailable [phone] Allergies Allergen (clinical drug ingredient) Drug/Non Drug Allergy documented on EMR Reaction Allergy Type Onset Date Status hydralazine Hydralazine Unknown Drug Allergy Act lilian Reason For Referral No Information Medications Medication SIG (Take, Route, Frequency, Duration) Notes Start Date End Date Status Fish Oil 1200 MG 1 capsule Orally Three times a day Active ubidecarenone 100 MG Oral Capsule ORAL ubidecarenone 100 MG Oral CapsuleOriginal Medicationubidecarenone 100 MG Oral Capsule *Reorder from [employer] for eRx and Interaction Alerts* 0 Not-Taking Co Q 10 100 MG as directed Orally Active Osmotic 24 HR nifedipine 30 MG Extended Release Oral Tablet ORAL Osmotic 24 HR nifedipine 30 MG Extended Release Oral TabletOriginal MedicationOsmotic 24 HR nifedipine 30 MG Extended Release Oral Tablet *Reorder from [employer] for eRx and Interaction Alerts* 0 Not-Taking quinapril 10 MG Oral Tablet ORAL quinapril 10 MG Oral TabletOriginal Medicationquinapril 10 MG Oral Tablet *Reorder from [employer] for eRx and Interaction Alerts* 0 Not-Taking Losartan Potassium 100 MG 1 tablet Orally Once a day Active Amlodipine & Diet Manage Prod Active Centrum Silver 50+Men - as directed Orally Active Eliquis 5 MG as directed Orally Active Pravastatin Sodium 20 MG Oral Tablet ORAL pravastatin sodium 20 MG Oral TabletOriginal Medicationpravastatin sodium 20 MG Oral Tablet *Reorder from [employer] for eRx and Interaction Alerts* 0 Active Indapamide 1.25 MG 1 tablet in the morning Orally Once a day Active Nebivolol HCl 5 MG 1 tablet Orally Once a day Active Vital Signs Height-cm 185.42 cm 03/31/2024 Weight-kg 108.86 kg 03/31/2024 Height 73.00 in 03/31/2024 Weight 240 lbs 03/31/2024 BMI 31.66 kg/m2 03/31/2024 Encounters Encounter Location Date Provider Diagnosis [facility] [address] [place], [place] [id number] 03/31/2024 MARINE STERLING Unspecified atherosclerosis of [place] arteries of extremities, bilateral legs I70.203 ; Acquired keratosis [keratoderma] palmaris et plantaris L85.1 ; Other hammer toe(s) (acquired), right foot M20.41 ; Other hammer toe(s) (acquired), left foot M20.42 ; Pain in right foot M79.671 and Pain in left foot M79.672 Assessments Encounter Date Diagnosis (ICD Code) Assessment Notes Treatment Notes Treatment Clinical Notes Section Notes 03/31/2024 Unspecified atherosclerosis of [place] arteries of extremities, bilateral legs (ICD-10 - [...] foot (ICD-10 - M79.672) Plan Of Treatment Next Appt Details Provider Name:GIA CALVIN, 01:20:00 PM, [address] [place] [address], [phone], Insurance Providers Payer Name Payer Address Payer Phone Subscriber Number Group Number Insured Name Patient Relationship to Insured Coverage Start Date Coverage End Date [employer] [address] SHUKRI COSTELLO [phone] [id number] KOREY CAMPBELL Self - patient is the insured Medical (General) History Medical History History ICD Code Sleep apnea high blood pressure
--- OUTSIDE RECORDS SUMMARY | 2024-06-24 08:01 | XMS_ITS | Clinical Summary ---
Author Organization [facility] Address [facility] access hospital[address] [place] [address] Care Team Providers Care Mental Measurements Teacher Name Role Phone Kaden Green MD Primary Care Provider [phone] Maia Plummer APRN, ANALYTICAL SCIENTIST-C Unavailable Lavell Valentino MD Unavailable Unavailabl e Allergies Active Allergy Reactions Criticality Noted Date Comments Hydralazine Other (see comment) 12/18/2022 Drug induced lupus Medications pravastatin 40 MG tablet Take 1 tablet (40 mg total) by mouth daily. Active Multiple Vitamins-Minera ls (CENTRUM SILVER 50+MEN OR) Take 1 tablet by mouth daily. Active Coenzyme Q10 (COQ10) 200 MG Cap Take 1 capsule by mouth daily. Active fish oil 1000 MG Cap capsule Take 2 capsules (2,000 mg total) by mouth 2 (two) times daily. Active ELIQUIS 5 MG tablet Take 1 tablet (5 mg total) by mouth 2 (two) times daily. 11/26/2022 Active nebivolol (BYSTOLIC) 20 MG tablet Take 1 tablet (20 mg total) by mouth daily. DIRECTED 10/07/2022 Active losartan (COZAAR) 50 MG tablet Take 1 tablet (50 mg total) by mouth daily. 30 tablet 1 12/18/2022 Active Active Problems Problem Noted Date Diagnosed Date Atrial fibrillation (CMS/HCC HHS/HCC) 12/19/2022 Hypertension 12/19/2022 Hyperlipidemia 12/19/2022 CKD (chronic kidney disease), stage II 3 Family History Medical History Relation Comments Stent Cardiac Brother Hyperlipidemia Father Stroke Father Hyperlipidemia Mother anika selena syndrome Mother No Known Problems Son Relation Status Comments Brother Father Mother Son Alive Social History Tobacco Use Types Packs/Day Years Used Date Smoking Tobacco: Former Cigarettes Smokeless Tobacco: Former Comments: over 20 years quit Alcohol Use Standard Drinks/Week Comments Not Currently 0 (1 standard drink = 0.6 oz pur e alcohol) very rarely Sex and Gender Information Value Date Recorded Sex Assigned at Not on file Legal Sex Male 11:43 AM ELECTRICAL PROSPECTING OBSERVER Gender Identity Not on file Sexual Orientation Not on file Last Filed Vital Signs Vital Sign Reading Time Taken Comments Blood Pressure 146/84 12/18/2022 11:35 AM CDT bp recheck Pulse 65 12/18/2022 9:19 AM CDT Temperature 36.2 C (97.2 F) 04/24/2020 12:20 PM ELECTRICAL PROSPECTING OBSERVER Respiratory Rate 16 12/18/2022 9:19 AM CDT Oxygen Saturation 98% 12/18/2022 9:19 AM CDT Inhaled Oxygen Concentration - - Weight 106.1 kg (234 lb) 12/18/2022 9:19 AM CDT Height 185.4 cm (6' 1 ) 12/18/2022 9:19 AM CDT Body Mass Index 30.87 12/18/2022 9:19 AM CDT Plan of Treatment Health Maintenance Due Date Last Done Comments Hepatitis C 1963 DTaP, Tdap and Td Vaccines ( 1 - Tdap) 1964 Annual Medicare Wellness Visit 08/17/2011 Pneumococcal Vaccine: 65+ Years (2 of 2 - PPSV23 or PCV20) 05/27/2018 05/27/2017 RSV Immunization or 60+ Years (1 - 1-dose 75+ series) 2021 COVID-19 Vaccine (2023-2 5 season) 2024 Influenza Adult (#1) 2024 Zoster Vaccines Completed 04/13/2018, 02/02/2018 Meningococcal B Vaccine Aged Out No l onger eligible based on patient's age to complete this topic Meningococcal Vaccine Aged Out No laura alfredo eligible based on patient's age to complete this topic RSV Immunizations Under 20 Months Aged Out No longer eligible b ased on patient's age to complete this topic Medical Devices Implanted Type Area Tobacco Baler Device Identifier Shelf Expiration Date Model / Serial / Lot 3.0 X 14 Asnis Micro Screw Implanted:Qty: 1 on 04/24/2020 by Twan Vásquez DPM at [facility] Screw Right: Foot [employer] PAR[employer] JONNIE [id number] / / 3.0x20 Asnis Screw Implanted:Qty: 2 on 04/24/2020 by Twan Vásquez DPM at [facility] Screw Right: Foot [employer] JON[employer]IE [id number] / / Easyclip Osteosynthesis Compression Staple Implanted:Qty: 1 on 04/24/2020 by Twan Vásquez DPM at [facility] Staple Right: Foot [employer]IE 10/15/2024 [id number] / / [id number] Post 2.0 Implanted:Qty: 2 on 04/24/2020 by Twan Vásquez DPM at [facility] Right: Foot [employer]IE [id number] / / Insurance AET[employer] Care Teams Mental Measurements Teacher Relationship Specialty Start Date End Date Kaden Green MD [address] [place] [address] PCP - General INTERNAL MEDICINE 12/8/20 Maia Plummer, TOSHIA, ANALYTICAL SCIENTIST-C [address] [facility] [address] [place] [address] NURSE PRACTITIONER 12/19/22 Lavell Valentino MD [id number] [place] [address] Consulting Physician CARDIOVASCULAR DISEASE 12/19/22
--- OUTSIDE RECORDS SUMMARY | 2024-06-24 08:01 | XMS_ITS | Encounter Summary ---
Author Organization [facility] Address [facility] [place] [address] Care Team Providers Care Caser In Name Role Phone Kaden Green MD Primary Care Provider [phone] Maia Plummer APRN, COMMUNITY LIFE DIRECTOR-C Unavailable [phone] Lavell Valentino MD Unavailable Unavailabl e Encounter Details Date Type Department Care Team (Late st Contact Info) Description 04/24/2020 Prep for Procedure [facility] Pre-Admission Testing [facility] [place], [place] [id number] Twan Vásquez, DPM [address] [facility] [address] [place] [address] Social History Tobacco Use Types Packs/Day Years Used Date Smoking Tobacco: Former Cigarettes Smokeless Tobacco: Former Comments: over 20 years quit Alcohol Use Standard Drinks/Week Comments Not Currently 0 (1 standard drink = 0.6 oz pur e alcohol) very rarely Sex and Gender Information Value Date Recorded Sex Assigned at Not on file Legal Sex Male 11:43 AM AROMATHERAPIST Gender Identity Not on file Sexual Orientation Not on file COVID-19 Exposure Response Date Recorded In the last month, have you been in contact with someone who was confirmed or suspected to have Coronavirus / COVID-19? No / Unsure 04/24/2020 6:49 AM AROMATHERAPIST documented as of this encounter Plan of Treatment Not on file documented as of this encounter Results * PRE-SURGICAL/PRE-PROCEDURE CORONAVIRUS (COVID 19) (04/21/2020 9:02 AM AROMATHERAPIST) CORONAVIRUS SARS COV 2 PCR (RESP) NOT DETECTED NOT DETECTED 04/22/2020 5:53 PM [facility] Comment: A Not Detected (negative) test result for this test means that SARS- CoV-2 RNA was not present in the specimen above the limit of detection. A negative result does not rule out the possibility of COVID-19 and should not be used as the sole basis for treatment or patient management decisions. If COVID-19 is still suspected, based on exposure history together with other clinical findings, re-testing should be considered in consultation with public health authorities. Laboratory test results should always be considered in the context of clinical observations and epidemiological data in making a final diagnosis and patient management decisions. Please review the Fact Sheets and FDA authorized labeling available for health care providers and patients using the following websites: https://www.[email or web address]/home/Covid-19/HCP/NAAT/fact-sheet2 https://www.[employer]/home/Covid-19/Patients/NAAT/ fact-sheet2 This test has been authorized by the FDA under an Emergency Use Authorization (EUA) for use by authorized laboratories. Due to the current public health emergency, [employer] is receiving a high volume of samples from a wide variety of swabs and media for COVID-19 testing. In order to serve patients during this public health crisis, samples from appropriate clinical sources are being tested. Negative test results derived from specimens received in non-commercially manufactured viral collection and transport media, or in media and sample collection kits not yet authorized by FDA for COVID-19 testing should be cautiously evaluated and the patient potentially subjected to extra precautions such as additional clinical monitoring, including collection of an additional specimen. Methodology: Nucleic Acid Amplification Test (NAAT) includes RT-PCR or TMA Additional information about COVID-19 can be found at the [employer] website: www.[email or web address]/Covid19. Test performed at [facility] [address] [place] [address] Director: TAMMY DRZ DO,MPH FIRST TEST NO 04/21/2020 10:46 AM [facility] EMPLOYED IN [facility] NO 04/21/2020 10:46 AM AROMATHERAPIST [facility] SYMPTOMATIC DEFINED BY CDC NO 04/21/2020 10:46 AM [facility] DATE OF SYMPTOM ONSET NO 04/21/2020 11:51 AM [facility] HOSPITALIZATION STATUS NO 04/21/2020 10:46 AM [facility] PATIENT IN ICU NO 04/21/2020 10:46 AM [facility] RESIDENT OF [facility] NO 04/21/2020 10:46 AM [facility] NOT 04/21/2020 11:51 AM [facility] PATIENT'S RACE WHITE OR 04/21/2020 10:46 AM [facility] ETHNICITY NONHISPANIC 04/21/2020 10:46 AM [facility] SOURCE (QST) NASOPHARYNGEAL SWAB 04/21/2020 10:46 AM [facility] NASOPHARYNGEAL SWAB / Unknown 04/21/2020 9:02 AM AROMATHERAPIST Twan Vásquez DPM MICROBIOLOGY - GENERAL ORDER ALMAS Final Result [facility] [address] [place] [address], [facility] [id number] [place] [address], documented in this encounter Visit Diagnoses Diagnosis Preoperative testing- Primary Preoperative examination, unspecified documented in this encounter Care Teams Caser In Relationship Specialty Start Date End Date Kaden Green MD [address] [place] [address] PCP - General INTERNAL MEDICINE 04/24/20 Maia Plummer, ONLINE PROJECT MANAGER, COMMUNITY LIFE DIRECTOR-C [address] [facility] [address] [place] [phone] NURSE PRACTITIONER 12/19/22 Lavell Valentino MD [address] [facility] [address] [place] [address] Consulting Physician CARDIOVASCULAR DISEASE 12/19/22 documented as of this encounter
== END 2024-06-24 07:58 | disposition home or self-care (01) ==
LOC: CHSIMG 07:58
PROVIDERS: PCP Internal Medicine; Visit Provider Internal Medicine
DX: N18.31 Chronic kidney disease, stage 3a (principal)
CPT/HCPCS: 76775

== ENCOUNTER 2024-07-17 04:41 | Emergency (ER) | payer MEDICARE, SELFPAY ==
[2024-07-17 04:43] VITALS: BP 128/77; PULSE 78; RESP 13; TEMP 36.3; O2SAT 100
--- NOTE | 2024-07-17 05:15 | PC.NURSE ---
Pt to CT at this time.
--- NOTE | 2024-07-17 05:21 | PC.NURSE ---
Pt returned from CT and attached to VS machine.
--- NOTE | 2024-07-17 05:49 | ED.FALL ---
HPI - Fall General Chief Complaint: Fall Stated Complaint: fall on blood thinner Time Seen by Provider: 07/17/24 05:06 History of Present Illness HPI Narrative: Patient is a 78-year-old male who presents to the emergency department this evening status post a head injury that occurred at home. Patient states that he was sleeping using his CPAP machine when he accidentally febrile a bed. Denies any loss of consciousness and states that he remembers falling our bed and hitting his head. Patient states that he just barely bumped his head on the ground and does have a small lump to the left occipital region. Patient's balance wheel screw hole tapper did inform him that since he is on Eliquis any time he has any form of head injury to come to the emergency department to obtain a CT scan to evaluate for any intracranial hemorrhage. Patient denies any headache at this time, any neck pain, any neurological symptoms including any vision changes, focal weakness, numbness and tingling. There are no additional modifying, alleviating, or precipitating factors at this time. Related Data Home Medications ?Medication ?Instructions ?Recorded ?Confirmed ?Last Taken ?Type amlodipine 10 mg tablet 10 mg PO DAILY 04/24/23 07/14/24 04/11/24 05:30 History apixaban 5 mg tablet (Eliquis) 5 mg PO BID 04/24/23 07/14/24 04/07/24 History coenzyme Q10 200 mg capsule (Co 200 mg PO DAILY 04/24/23 07/14/24 04/26/23 History Q-10) indapamide 1.25 mg tablet 1.25 mg PO EVERY OTHER DAY 04/24/23 07/14/24 04/26/23 History losartan 100 mg tablet 100 mg PO DAILY 04/24/23 07/14/24 04/11/24 05:30 History omega 5-bor-rco-fish oil 1,200 mg 2 cap PO DAILY 04/24/23 07/14/24 04/26/23 History (144 mg-216 mg) capsule (Fish Oil) pravastatin 40 mg tablet 40 mg PO HS 04/24/23 07/14/24 04/26/23 History nuzkniug-bk-tmywu 300 mcg-K 60 1 tablet PO DAILY 07/03/23 07/14/24 Unknown History mcg-lycop 600 mcg-lutein 300 mcg tablet (Centrum Silver Men) clonidine HCl 0.1 mg tablet 0.1 mg PO BID 07/14/24 07/14/24 Unknown History nebivolol 20 mg tablet 10 mg PO DAILY 07/14/24 07/14/24 Unknown History Allergies Allergy/AdvReac Type Severity Reaction Status Date / Time hydralazine AdvReac Cramping Verified 07/14/24 11:03 of the Muscles Review of Systems Review of Systems: All systems are reviewed and are negative unless stated otherwise in the HPI. [facility] Past Medical History Medical History SLE (systemic lupus erythematosus) Afib CKD (chronic kidney disease) BPH (benign prostatic hyperplasia) ANTHONY (obstructive sleep apnea) HTN (hypertension) HLD (hyperlipidemia) Family History Family History Other Family history of elevated blood lipids Hypertension Social History Social History Smoking packs per day: 1 Smoking cigarettes per day: 20.0 Years smoked: 20 Smoking pack-years: 20.00 Smoking status: Former smoker Tobacco type: cigarettes Smoking end date: 05/18/82 Alcohol intake: never Substance use: never Substance use type: does not use Living arrangements: with family Spiritual care concerns: No Exam Narrative: General: Alert, awake, afebrile, in no acute distress. HEENT: PERRL, no rhinorrhea, no post nasal drip, oropharynx clear, small hematoma to the left occipital region, no raccoon eyes or Good sign. Neck: Trachea midline, no JVD, no lymphadenopathy. Cardiovascular: Regular rate and rhythm, no murmurs, rubs or gallops, no peripheral edema. Respiratory: Clear to auscultation bilaterally, no tachypnea, no wheezing, no rhonchi, no rubs, no respiratory distress. Abdomen: Soft, nontender, nondistended, no rebound, no guarding, no peritoneal signs. Musculoskeletal: No joint swelling or deformity, normal muscle tone. Skin: No rashes or petechia, no signs of infection. Psychiatric: Alert and oriented, normal behavior and judgment for situation. Neurological: Alert and oriented to person, place, and time. Follows all commands, 5/5 motor strength of bilateral upper and lower extremity, sensation is intact and equal in the bilateral upper and lower extremity, cranial nerves 2-12 grossly intact. No focal deficits, speech is clear and fluent. Course Vital Signs Vital signs: Vital Signs Temperature 97.3 F L 07/17/24 04:43 Pulse Rate 78 07/17/24 04:43 Respiratory Rate 13 07/17/24 04:43 Blood Pressure 128/77 07/17/24 04:43 Pulse Oximetry 100 07/17/24 04:43 Oxygen Delivery Room Air 07/17/24 04:43 Temperature 97.3 F L 07/17/24 04:43 Pulse Rate 78 07/17/24 04:43 Respiratory Rate 13 07/17/24 04:43 Blood Pressure 128/77 07/17/24 04:43 Pulse Oximetry 100 07/17/24 04:43 Oxygen Delivery Room Air 07/17/24 04:43 MDM - Fall MDM Narrative Medical decision making narrative: The patient was evaluated by myself in the emergency department. History is obtained from patient who is an independent historian and physical exam was performed. External medical records were reviewed at this time. Imaging studies obtained included CT brain without IV contrast which was independently interpreted by me revealing no acute intracranial process, which is pending final radiology interpretation. Differential diagnosis considerations include intracranial hemorrhage, fractures. Comorbidities impacting this visit include anticoagulation use with Eliquis. I have evaluated and discussed social determinants of health with the patient that could potentially impact subsequent diagnosis and treatment plans. Remained arrived to our emergency department. Repeat vital signs were all reviewed and noted to be stable. Differential diagnosis and treatment plan were discussed with the patient who agrees with discussion and after shared medical decision-making agrees with discharge. All questions were answered to the patient's satisfaction. Patient will follow up with his PCP in 3-5 days. Patient was provided with strict return precautions and instructed to return to the emergency department if any new or worsening symptoms develop. The patient was discharged in stable condition. Discharge Plan Discharge Clinical Impression: Head injury, Ground-level fall Patient Disposition: Home, Self-Care Condition: Improved Instructions: Antibiotic Form, Fall Prevention for Older Adults (ED), Head Injury (ED) Additional Instructions: Please follow-up with your family doctor within the next 3-5 days. Return to the emergency department if any new or worsening symptoms develop. Patient Language: Panamanian Prescriptions: No Action clonidine HCl 0.1 mg tablet 0.1 mg PO BID Allison [place] Men [phone] mcg tablet 1 tablet PO DAILY pravastatin 40 mg tablet 40 mg PO HS amlodipine 10 mg tablet 10 mg PO DAILY indapamide 1.25 mg tablet 1.25 mg PO EVERY OTHER DAY losartan 100 mg tablet 100 mg PO DAILY coenzyme Q10 [Co Q-10] 200 mg Capsule 200 mg PO DAILY omega 5-ipk-hry-fish oil [Fish Oil] 1,200 (144-216) mg Capsule 2 cap PO DAILY Eliquis 5 mg tablet 5 mg PO BID nebivolol 20 mg tablet 10 mg PO DAILY Follow-up/Referrals: Kaden Green MD [Primary Care Provider] - 3 Days Time of Disposition: 05:50
[2024-07-17 06:18] VITALS: BP 132/78; PULSE 79; RESP 15; O2SAT 99
== END 2024-07-17 06:20 | disposition home or self-care (01) ==
LOC: ANHED 05:59
PROVIDERS: Emergency Provider Emergency Medicine; PCP Internal Medicine
DX: S00.03XA Contusion of scalp, initial encounter (principal); I48.91 Unspecified atrial fibrillation; I12.9 Hypertensive chronic kidney disease with stage 1 through stage 4 chronic kidney disease, or unspecified chronic kidney disease; N18.9 Chronic kidney disease, unspecified; N40.0 Benign prostatic hyperplasia without lower urinary tract symptoms; E78.5 Hyperlipidemia, unspecified; M32.9 Systemic lupus erythematosus, unspecified; G47.33 Obstructive sleep apnea (adult) (pediatric); Z87.891 Personal history of nicotine dependence; Z79.01 Long term (current) use of anticoagulants; Z79.899 Other long term (current) drug therapy; W06.XXXA Fall from bed, initial encounter
CPT/HCPCS: 70450; 99284

== ENCOUNTER 2024-12-12 10:02 | Outpatient (CLI) | payer MEDICARE, SELFPAY ==
--- NOTE | ~2024-12-12 | XR_ITS ---
XR hip RT min 2V 12/12/2024 10:24 Indication: Right hip pain Procedure: 2 views right hip Comparison: No prior studies for comparison. Findings: No fracture, subluxation or dislocation. No soft tissue abnormality. No foreign bodies. Impression: 1: No significant abnormality of the right hip. Reviewed, dictated and finalized at location B. Impression: 1: No significant abnormality of the right hip.
--- OUTSIDE RECORDS SUMMARY | 2024-12-12 10:33 | XMS_ITS | Encounter Summary ---
Author Organization [facility] Address Replaced by [facility] [place] [address] Care Team Providers Care Reel Assembler Name Role Phone Kaden Green MD Primary Care Provider [phone] Maia Plummer APRN, FRONT DESK REPRESENTATIVE-C Unavailable Lavell Valentino MD Unavailable [phone] Encounter Details Date Type Department Care Team (Late st Contact Info) Description 04/24/2020 Prep for Procedure [facility] [place] [place] [id number] Twan Vásquez, DPM [address] [address] Social History Tobacco Use Types Packs/Day Years Used Date Smoking Tobacco: Former Cigarettes Smokeless Tobacco: Former Comments:over 20 years quit Alcohol Use Standard Drinks/Week Comments Not Currently 0 (1 standard drink = 0.6 oz pur e alcohol) very rarely Sex and Gender Information Value Date Recorded Sex Assigned at Not on file Legal Sex Male 11:43 AM THIRD OFFICER Gender Identity Not on file Sexual Orientation Not on file COVID-19 Exposure Response Date Recorded In the last month, have you been in contact with someone who was confirmed or suspected to have Coronavirus / COVID-19? No / Unsure 04/24/2020 6:49 AM THIRD OFFICER documented as of this encounter Plan of Treatment Not on file documented as of this encounter Results * PRE-SURGICAL/PRE-PROCEDURE CORONAVIRUS (COVID 19) (04/21/2020 9:02 AM THIRD OFFICER) CORONAVIRUS SARS COV 2 PCR (RESP) NOT DETECTED NOT DETECTED 04/22/2020 5:53 PM THIRD OFFICER [facility] Comment: A Not Detected (negative) test result [...] providers and patients using the following websites: https://www.[employer]ulu.[employer]/home/Covid-19/HCP/NAAT/fact-sheet2 https://www.[employer].com.[employer]/home/Covid-19/Patients/NAAT/ fact-sheet2 This test has been authorized by the FDA under an Emergency Use Authorization (EUA) for use by authorized laboratories. Due to the current public health emergency, [facility] is receiving a high volume of samples [...] about COVID-19 can be found at the [employer] website: www.[employer]/Covid19. Test performed at [facility] [place] [address] [place] [address] Director: TAMMY RDZ DO,MPH FIRST TEST NO 04/21/2020 10:46 AM [facility] EMPLOYED IN [facility] NO 04/21/2020 10:46 AM THIRD OFFICER [facility] SYMPTOMATIC DEFINED BY CDC NO 04/21/2020 10:46 AM THIRD OFFICER [facility] DATE OF SYMPTOM ONSET NO 04/21/2020 11:51 AM [facility] HOSPITALIZATION STATUS NO 04/21/2020 10:46 AM THIRD OFFICER [facility] PATIENT IN ICU NO 04/21/2020 10:46 AM [facility] RES[facility] OF [facility] NO 04/21/2020 10:46 AM THIRD OFFICER [facility] NOT 04/21/2020 11:51 AM [facility] PATIENT'S RACE WHITE OR 04/21/2020 10:46 AM [facility] ETHNICITY NONHISPANIC 04/21/2020 10:46 AM [facility] SOURCE (QST) NASOPHARYNGEAL SWAB 04/21/2020 10:46 AM [facility] NASOPHARYNGEAL SWAB / Unknown 04/21/2020 9:02 AM THIRD OFFICER us Twan ALVESM MICROBIOLOGY - GENERAL ORDER ALMAS Final Result [facility] [address] [place] [address], [place] [phone] [facility] [address] [place] [address], documented in this encounter Visit Diagnoses Diagnosis Preoperative testing- Primary Preoperative examination, unspecified documented in this encounter Care Teams Reel Assembler Relationship Specialty Start Date End Date Kaden Green MD [address] [place] [address] PCP - General INTERNAL MEDICINE 04/24/20 Maia Plummer APRN, FRONT DESK REPRESENTATIVE-C [address] [facility] [address] [place] [phone] NURSE PRACTITIONER 12/19/22 Lavell Valentino MD [address] [place] [phone] Consulting Physician CARDIOVASCULAR DISEASE 12/19/22 documented as of this encounter
--- OUTSIDE RECORDS SUMMARY | 2024-12-12 10:33 | XMS_ITS | Clinical Summary ---
Author Organization [facility] Address [facility] [place] [address] Care Team Providers Care Garbage Truck Dispatcher Name Role Phone Kaden Green MD Primary Care Provider [phone] Maia Plummer APRN, INDIVIDUAL SMALL GROUP INSTRUCTOR-C Unavailable Lavell Valentino MD Unavailable [phone] Allergies Active Allergy Reactions Criticality Noted Date [...] on file Legal Sex Male 11:43 AM OBSTETRICS GYNECOLOGY PHYSICIAN Gender Identity Not on file Sexual Orientation Not on file Last Filed Vital Signs Vital Sign Reading Time Taken Comments Blood Pressure 146/84 12/18/2022 11:35 AM CDT bp recheck Pulse 65 12/18/2022 9:19 AM CDT Temperature 36.2 C (97.2 F) 04/24/2020 12:20 PM OBSTETRICS GYNECOLOGY PHYSICIAN Respiratory Rate 16 12/18/2022 9:19 AM CDT Oxygen Saturation 98% 12/18/2022 9:19 AM CDT Inhaled Oxygen Concentration - - Weight 106.1 kg (234 lb) 12/18/2022 9:19 AM CDT Height 185.4 cm (6' 1) 12/18/2022 9:19 AM CDT Body Mass Index 30.87 12/18/2022 9:19 AM CDT Plan of Treatment Health Maintenance Due Date Last Done Comments Hepatitis C 1963 DTaP, Tdap and Td Vaccines ( 1 - Tdap) 1964 Annual Medicare Wellness Visit 08/17/2011 Pneumococcal Vaccine: 50+ Years (2 of 2 - PPSV23) 05/27/2018 05/27/2017 RSV Immunization or 60+ Years (1 - 1-dose 75+ series) 2021 COVID-19 Vaccine (2023-2 5 season) 2024 Zoster Vaccines Completed 04/13/2018, 02/02/2018 Meningococcal B Vaccine Aged Out No l onger eligible based on patient's age to complete this topic Meningococcal Vaccine Aged Out No laura alfredo eligible based on patient's age to complete this topic RSV Immunizations Under 20 Months Aged Out No longer eligible b ased on patient's age to complete this topic Medical Devices Implanted Type Area Research Attorney Device Identifier Shelf Expiration Date Model / Serial / Lot 3.0 X 14 Asnis Micro Screw Implanted:Qty: 1 on 04/24/2020 by Twan Vásquez DPM at [facility] Screw Right: Foot [employer] JON[employer]IE [id number] / / [id number] Asnis Screw Implanted:Qty: 2 on 04/24/2020 by Twan Vásquez DPM at [facility] Screw Right: Foot [employer]ON[employer]IE [id number] / / Easyclip Osteos[employer] Compression Staple Implanted:Qty: 1 on 04/24/2020 by Twan Vásquez DPM at [facility] Staple Right: Foot [employer] 10/15/2024 [id number] / / [id number] Post 2.0 Implanted:Qty: 2 on 04/24/2020 by Twan Vásquez DPM at [facility] Right: Foot [employer] [id number] / / Insurance AETNA Care Teams Garbage Truck Dispatcher Relationship Specialty Start Date End Date Kaden Green MD [address] [place] [address] PCP - General INTERNAL MEDICINE 04/24/20 Maia Plummer APRN, INDIVIDUAL SMALL GROUP INSTRUCTOR-C [address] [facility] [address] [place] [id number] NURSE PRACTITIONER 12/19/22 Lavell Valentino MD [address] [place] [address] Consulting Physician CARDIOVASCULAR DISEASE 12/19/22
--- OUTSIDE RECORDS SUMMARY | 2024-12-12 10:33 | XMS_ITS | Patient Health Record ---
Author Organization [facility] Address [address] [place], [place] [id number] Care Team Providers Care Labor Relations Officer Name Role Phone GIA CALVIN Unavailable [phone] Kaden Green Unavailable Unavailable MARINE STERLING Unavailable [phone] YOGI HUANG Unavailable [phone] Allergies Allergen (clinical drug ingredient) Drug/Non Drug Allergy documented on EMR Reaction Allergy Type Onset Date Status hydralazine Hydralazine Unknown Drug Allergy Act lilian Reason For Referral No Information Medications Medication SIG (Take, Route, Frequency, Duration) Notes Start Date End Date Status Fish Oil 1200 MG 1 capsule Orally Three times a day Unknown ubidecarenone 100 MG Oral Capsule ORAL ubidecarenone 100 MG Oral CapsuleOriginal Medicationubidecarenone 100 MG Oral Capsule *Reorder from [employer] for eRx and Interaction Alerts* 0 Unknown cloNIDine HCl 0.1 MG 1 tablet Orally Once a day Active quinapril 10 MG Oral Tablet ORAL quinapril 10 MG Oral TabletOriginal Medicationquinapril 10 MG Oral Tablet *Reorder from [employer] for eRx and Interaction Alerts* 0 Unknown Osmotic 24 HR nifedipine 30 MG Extended Release Oral Tablet ORAL Osmotic 24 HR nifedipine 30 MG Extended Release Oral TabletOriginal MedicationOsmotic 24 HR nifedipine 30 MG Extended Release Oral Tablet *Reorder from [employer] for eRx and Interaction Alerts* 0 Unknown Pravastatin Sodium 20 MG Oral Tablet ORAL pravastatin sodium 20 MG Oral TabletOriginal Medicationpravastatin sodium 20 MG Oral Tablet *Reorder from [employer] for eRx and Interaction Alerts* 0 Unknown Losartan Potassium 100 MG 1 tablet Orally Once a day Unknown Eliquis 5 MG as directed Orally Unknown Centrum Silver 50+Men - as directed Orally Unknown Co Q 10 100 MG as directed Orally Unknown Nebivolol HCl 5 MG 1 tablet Orally Once a day Unknown Indapamide 1.25 MG 1 tablet in the morning Orally Once a day Unknown Amlodipine & Diet Manage Prod Unknown Vital Signs Height-cm 185.42 cm 11/03/2024 Weight-kg 108.86 kg 11/03/2024 Height 73.00 in 11/03/2024 Weight 240 lbs 11/03/2024 BMI 31.66 kg/m2 11/03/2024 Encounters Encounter Location Date Provider Diagnosis [address] [id number] 10/20/2024 YOGI HUANG Acquired keratosis [keratoderma] palmaris et plantaris L85.1 ; Metatarsalgia of right foot M77.41 ; Atherosclerosis of [place] arteries of extremities with intermittent claudication, bilateral legs I70.213 and Pain in right foot M79.[address] [id number] 11/03/2024 YOGI HUANG Acquired keratosis [keratoderma] palmaris et plantaris L85.1 ; Metatarsalgia of right foot M77.41 ; Atherosclerosis of [place] arteries of extremities with intermittent claudication, bilateral legs I70.213 and Pain in right foot M79.671 [facility] [address] [place], [place] [id number] 03/31/2024 MARINE STERLING Unspecified atherosclerosis of [place] arteries of extremities, bilateral legs I70.203 ; Acquired keratosis [keratoderma] palmaris et plantaris L85.1 ; Other hammer toe(s) (acquired), right foot M20.41 ; Other hammer toe(s) (acquired), left foot M20.42 ; Pain in right foot M79.671 and Pain in left foot M79.[address] [id number] 07/07/2024 GIA CALVIN Acquired keratosis [keratoderma] palmaris et plantaris L85.1 ; Metatarsalgia of right foot M77.41 ; Atherosclerosis of [place] arteries of extremities with intermittent claudication, bilateral legs I70.213 and Pain in right foot M79.671 Assessments Encounter Date Diagnosis (ICD Code) Assessment Notes Treatment Notes Treatment Clinical Notes Section Notes 03/31/2024 Unspecified atherosclerosis of [place] arteries of extremities, bilateral legs (ICD-10 - [...] and no infection or drainage was noted. 07/07/2024 Acquired keratosis [keratoderma] palmaris et plantaris (ICD-10 - L85.1) A total of 2 corns or calluses, as described in the note above, were cut and pared utilizing a #15 blade 07/07/2024 Metatarsalgia of right foot (ICD-10 - M77.41) 10/20/2024 Acquired keratosis [keratoderma] palmaris et plantaris (ICD-10 - L85.1) A total of 2 corns or calluses, as described in the note above, were cut and pared utilizing a #15 blade 10/20/2024 Metatarsalgia of right foot (ICD-10 - M77.41) Discussed need to use orthotics. He says he has several pairs. He will bring them to check if they are still in good repair and fit well 11/03/2024 Acquired keratosis [keratoderma] palmaris et plantaris (ICD-10 - L85.1) A total of 2 corns or calluses, as described in the note above, were cut and pared utilizing a #15 blade 11/03/2024 Metatarsalgia of right foot (ICD-10 - M77.41) Applied met pad to right orthotics x 4. 07/07/2024 Atherosclerosis of [place] arteries of extremities with intermittent claudication, bilateral legs (ICD-10 - I70.213) 11/03/2024 Atherosclerosis of [place] arteries of extremities with intermittent claudication, bilateral legs (ICD-10 - I70.213) Check and protect LE bilateral daily. Call if any changes or concerns 10/20/2024 Atherosclerosis of [place] arteries of extremities with intermittent claudication, bilateral legs (ICD-10 - I70.213) Check and protect LE bilateral daily. Call if any changes or concerns. 03/31/2024 Other hammer toe(s) (acquired), right foot [...] toe(s) (acquired), left foot (ICD-10 - M20.42) 07/07/2024 Pain in right foot (ICD-10 - M79.671) 10/20/2024 Pain in right foot (ICD-10 - M79.671) Patient was instructed to try an OTC topical pain reliever/anti-infl ammatory such as Voltaren Gel, Aspercreme with Lidocaine, or Biofreeze etc over the affected areas. Spot test on hand or somewhere visible prior to starting to watch for possible rash/allergic reaction. Ice and rest recommended as well 11/03/2024 Pain in right foot (ICD-10 - M79.671) Reduced with consistent use of orthotics and shoes. Continue use of these 03/31/2024 Pain in right foot (ICD-10 - M79.671) 03/31/2024 Pain in left foot (ICD-10 - M79.672) 07/07/2024 Other Plan Of Treatment Next Appt Details Provider Name:YOGI HUYNH, 12/29/2024 01:10:00 PM, [address] [place] [address], [id number], Insurance Providers Payer Name Payer Address Payer Phone Subscriber Number Group Number Insured Name Patient Relationship to Insured Coverage Start Date Coverage End Date [employer] [address] SHUKRI COSTELLO [phone] [id number] KOREY CAMPBELL Self - patient is the insured Medical (General) History Medical History History ICD Code Sleep apnea high blood pressure
--- OUTSIDE RECORDS SUMMARY | 2024-12-12 10:33 | XMS_ITS ---
Author Organization [facility] Address [address] [place], [place] [address] Care Team Providers Care Deboning Team Leader Name Role Phone GIA CALVIN Unavailable [phone] Kaden Green Unavailable Unavailable YOGI HUANG Unavailable [phone] Allergies Allergen (clinical drug ingredient) Drug/Non Drug Allergy documented on EMR Reaction Allergy Type Onset Date Status hydralazine Hydralazine Unknown Drug Allergy Act lilian REASON FOR VISIT CHECK CALLUS Medications Medication SIG (Take, Route, Frequency, Duration) Notes Start Date End Date Status Fish Oil 1200 MG 1 capsule Orally Three times a day Unknown ubidecarenone 100 MG Oral Capsule ORAL ubidecarenone 100 MG Oral CapsuleOriginal Medicationubidecarenone 100 MG Oral Capsule *Reorder from [employer] for eRx and Interaction Alerts* 0 Unknown cloNIDine HCl 0.1 MG 1 tablet Orally Once a day Active Centrum Silver 50+Men - as directed Orally Unknown Co Q 10 100 MG as directed Orally Unknown quinapril 10 MG Oral Tablet ORAL quinapril 10 MG Oral TabletOriginal Medicationquinapril 10 MG Oral Tablet *Reorder from [employer] for eRx and Interaction Alerts* 0 Unknown Osmotic 24 HR nifedipine 30 MG Extended Release Oral Tablet ORAL Osmotic 24 HR nifedipine 30 MG Extended Release Oral TabletOriginal MedicationOsmotic 24 HR nifedipine 30 MG Extended Release Oral Tablet *Reorder from [employer] for eRx and Interaction Alerts* 0 Unknown Pravastatin Sodium 20 MG Oral Tablet ORAL pravastatin sodium 20 MG Oral TabletOriginal Medicationpravastatin sodium 20 MG Oral Tablet *Reorder from [employer] for eRx and Interaction Alerts* 0 Unknown Nebivolol HCl 5 MG 1 tablet Orally Once a day Unknown Indapamide 1.25 MG 1 tablet in the morning Orally Once a day Unknown Losartan Potassium 100 MG 1 tablet Orally Once a day Unknown Eliquis 5 MG as directed Orally Unknown Amlodipine & Diet Manage Prod Unknown Vital Signs Height 73.00 in 11/03/2024 Weight 240 lbs 11/03/2024 BMI 31.66 kg/m2 11/03/2024 Height-cm 185.42 cm 11/03/2024 Weight-kg 108.86 kg 11/03/2024 Encounters Encounter Location Date Provider Diagnosis [address] [id number] 11/03/2024 YOGI UHANG Acquired keratosis [keratoderma] palmaris et plantaris L85.1 ; Metatarsalgia of right foot M77.41 ; Atherosclerosis of [place] arteries of extremities with intermittent claudication, bilateral legs I70.213 and Pain in right foot M79.671 Assessments Encounter Date Diagnosis (ICD Code) Assessment Notes Treatment Notes Treatment Clinical Notes Section Notes 11/03/2024 Acquired keratosis [keratoderma] palmaris et plantaris (ICD-10 - L85.1) A total of 2 corns or calluses, as described in the note above, were cut and pared utilizing a #15 blade 11/03/2024 Metatarsalgia of right foot (ICD-10 - M77.41) Applied met pad to right orthotics x 4. 11/03/2024 Atherosclerosis of [place] arteries of extremities with intermittent claudication, bilateral legs (ICD-10 - I70.213) Check and protect LE bilateral daily. Call if any changes or concerns 11/03/2024 Pain in right foot (ICD-10 - M79.671) Reduced with consistent use of orthotics and shoes. Continue use of these Plan Of Treatment Treatment Notes Assessment Notes Acquired keratosis [keratode rma] palmaris et plantaris A total of 2 corns or calluses, as described in the note above, were cut and pared utilizing a #15 blade Metatarsalgia of right foot Applied met pad to right orthotics x 4. Atherosclerosis of [place] ar teries of extremities with intermittent claudication, bilateral legs Check and protect LE bilateral daily. Call if any changes or concerns Pain in right foot Reduced with consist ent use of orthotics and shoes. Continue use of these Next Appt Details Follow Up: 3 Months, Reason: General Care Provider Name:YOGI HUYNH, 12/29/2024 01:10:00 PM, [address] [place] [address], [phone], Progress Notes * KOREY CAMPBELL ADOB:1945 (79 yo M)Acc No.[id number]:11/03/2024 Patient: KOREY BE A Provider: Bam HUANG :1945 A ge:79 Y S ex:Male Date:11/03/2024 Address:[address] [place] [address] [place] [address] Subjective: * Chief Complaints: * 1 . CHECK CALLUS. * HPI: H PI: Follow Up Visit P atient presents for follow-up visit for a callus on the right foot. Patient states that the callus felt good after his last appointment but that it is back already. He brought his inserts with him to have them looked at. , MA: phillip. * ROS: G eneral / Constitutional: Patient denies w eakness. M usculoskeletal: Patient complains of h ammertoes. P eripheral Vascular: Patient denies b lanching of skin, cold extremities, decreased sensation in extremities. S kin: Patient complains of c alluses and corns. N eurologic: Patient denies d izziness, gait abnormality, headache. * Medical History: S leep apnea, High blood pressure. * Social History: M igrated Social History: M igrated Social History: History of tobacco use : , Smoking Status : Former tobacco user. * Medications: T aking cloNIDine HCl 0.1 MG Tablet 1 tablet Orally Once a day , Unknown Fish Oil 1200 MG Capsule 1 capsule Orally Three times a day , Unknown Co Q 10 100 MG Capsule as directed Orally , Unknown Centrum Silver 50+Men - Tablet as directed Orally , Unknown Eliquis 5 MG Tablet as directed Orally , Unknown Losartan Potassium 100 MG Tablet 1 tablet Orally Once a day , Unknown Amlodipine & Diet Manage Prod , Unknown Indapamide 1.25 MG Tablet 1 tablet in the morning Orally Once a day , Unknown Nebivolol HCl 5 MG Tablet 1 tablet Orally Once a day , Unknown Pravastatin Sodium 20 MG Oral Tablet ORAL , Notes to Pharmacist: pravastatin sodium 20 MG Oral TabletOriginal Medicationpravastatin sodium 20 MG Oral Tablet *Reorder from [facility] for eRx and Interaction Alerts*, Unknown Osmotic 24 HR nifedipine 30 MG Extended Release Oral Tablet ORAL , Notes to Pharmacist: Osmotic 24 HR nifedipine 30 MG Extended Release Oral TabletOriginal MedicationOsmotic 24 HR nifedipine 30 MG Extended Release Oral Tablet *Reorder from [facility] for eRx and Interaction Alerts*, Unknown quinapril 10 MG Oral Tablet ORAL , Notes to Pharmacist: quinapril 10 MG Oral TabletOriginal Medicationquinapril 10 MG Oral Tablet *Reorder from [facility] for eRx and Interaction Alerts*, Unknown ubidecarenone 100 MG Oral Capsule ORAL , Notes to Pharmacist: ubidecarenone 100 MG Oral CapsuleOriginal Medicationubidecarenone 100 MG Oral Capsule *Reorder from [facility] for eRx and Interaction Alerts*, Medication List reviewed and reconciled with the patient * Allergies: H ydralazine: Allergy. Objective: * Vitals: S hoe Size: 14, Wt: 240 lbs, Wt-k.86 kg, Ht: 73.00 in, Ht-cm: 185.42 cm, BMI: 31.66 Index, Body Surface Area: 2.37. * Examination: P hysical Examination: General appearance: A lert, pleasant, well-nourished and in no acute distress. D ermatologic: Skin findings: S kin is thin, atrophic and lacking pedal hair. Hypertrophic / hyperkeratotic lesion: p lantar aspect of the right 1st and 5th metatarsal heads. V ascular: Dorsalis pedis pulse: 1 /4 b ilateral. Posterior tibial pulse: 0 /4 bilateral. Capillary refill: g reater than 3 seconds. Edema: N o edema bilateral. N eurologic: Gross sensation G rossly intact to light touch. There is negative Tinel's sign. M usculoskeletal: Muscle Strength M uscle strength is 5/5 in regards to dorsiflexion, plantarflexion, inversion, and eversion in bilateral lower extremities. ? M usculoskeletal: Foot Structure T he foot structure is noted to be, planus, right, There is calcaneus valgus noted. Pain on palpation T here is pain on palpation of, plantar aspect of the right 1st metatarsal head with callus and diffusely across right mtpjs plantar aspect 2-5. Assessment: * Assessment: 1. M etatarsalgia of right foot - M77.41 (Primary) 2 . A cquired keratosis [keratoderma] palmaris et plantaris - L85.1 3 . A therosclerosis of [place] arteries of extremities with intermittent claudication, bilateral legs - I70.213 4 . P ain in right foot - M79.671 Plan: * Treatment: 2. A cquired keratosis [keratoderma] palmaris et plantaris Notes: A total of 2 corns or calluses, as described in the note above, were cut and pared utilizing a #15 blade 3. A therosclerosis of [place] arteries of extremities with intermittent claudication, bilateral legs Notes: Check and protect LE bilateral daily. Call if any changes or concerns 4. P ain in right foot Notes: Reduced with consistent use of orthotics and shoes. Continue use of these * Immunizations: Immunization record has been reviewed and updated. * Follow Up: 3 Months (Reason: General Care) * Billing Information: * Visit Code: 95305 Office Visit, Est Pt., Level 3. * Procedure Codes: * Electronic signature of MICKEY HUANG DPM on 12/12/2024 at 10:30 AM CDT Sign off status: Pending * Provider: Bam HUANG Date: 0 11/03/2024 Generated for Silvia hodge/Raya/Mery on: 0 12/12/2024 10:30 AM CDT History and Physical Notes * HPI (History of Present Illness) Category Sub-Category Detail Notes Category Not es HPI Follow Up Visit Patient presents for follow-up visit for a callus on the right foot. Patient states that the callus felt good after his last appointment but that it is back already. He brought his inserts with him to have them looked at. , MA: [facility] Examination Category Sub-Category Detail Notes Category Not es Dermatologic Skin findings: Skin is thin, at rophic and lacking pedal hair Hypertrophic / hyperkeratotic lesion: pl adiranna aspect of the right 1st and 5th metatarsal heads Neurologic Gross sensation Grossly intact t o light touch. There is negative Tinel's sign Vascular Dorsalis pedis pulse: 1/4 bilateral Edema: No edema bilateral Capillary refill: greater than 3 secon ds Posterior tibial pulse: 0/4 bilateral Physical Examination General appearance: Alert, pleasant, well-nourished and in no acute distress Musculoskeletal Muscle Strength Muscle strength is 5/5 in regards to dorsiflexion, plantarflexion, inversion, and eversion in bilateral lower extremities Musculoskeletal Pain on palpation There is pain on palpation of, plantar aspect of the right 1st metatarsal head with callus and diffusely across right mtpjs plantar aspect 2-5 Foot Structure The foot structure i s noted to be, planus, right, There is calcaneus valgus noted
--- OUTSIDE RECORDS SUMMARY | 2024-12-12 10:33 | XMS_ITS ---
Author Organization [facility] Address [address] [place], [place] [address] Care Team Providers Care Medical Scientific Officer Name Role Phone GIA CALVIN Unavailable [phone] Kaden Green Unavailable Unavailable YOGI HUANG Unavailable [phone] Allergies Allergen (clinical drug ingredient) Drug/Non Drug Allergy documented on EMR Reaction Allergy Type Onset Date Status hydralazine Hydralazine Unknown Drug Allergy Act lilian REASON FOR VISIT *Callus Care Medications Medication SIG (Take, Route, Frequency, Duration) Notes Start Date End Date Status ubidecarenone 100 MG Oral Capsule ORAL ubidecarenone 100 MG Oral CapsuleOriginal Medicationubidecarenone 100 MG Oral Capsule *Reorder from [employer] for eRx and Interaction Alerts* 0 Unknown quinapril 10 MG Oral Tablet ORAL quinapril 10 MG Oral TabletOriginal Medicationquinapril 10 MG Oral Tablet *Reorder from [employer] for eRx and Interaction Alerts* 0 Unknown Osmotic 24 HR nifedipine 30 MG Extended Release Oral Tablet ORAL Osmotic 24 HR nifedipine 30 MG Extended Release Oral TabletOriginal MedicationOsmotic 24 HR nifedipine 30 MG Extended Release Oral Tablet *Reorder from [employer] for eRx and Interaction Alerts* 0 Unknown Pravastatin Sodium 20 MG Oral Tablet ORAL pravastatin sodium 20 MG Oral TabletOriginal Medicationpravastatin sodium 20 MG Oral Tablet *Reorder from [employer] for eRx and Interaction Alerts* 0 Unknown Nebivolol HCl 5 MG 1 tablet Orally Once a day Unknown Eliquis 5 MG as directed Orally Unknown Centrum Silver 50+Men - as directed Orally Unknown Losartan Potassium 100 MG 1 tablet Orally Once a day Unknown Indapamide 1.25 MG 1 tablet in the morning Orally Once a day Unknown Amlodipine & Diet Manage Prod Unknown Co Q 10 100 MG as directed Orally Unknown Fish Oil 1200 MG 1 capsule Orally Three times a day Unknown cloNIDine HCl 0.1 MG 1 tablet Orally Once a day Active Vital Signs Height 73.00 in 10/20/2024 Weight 240 lbs 10/20/2024 BMI 31.66 kg/m2 10/20/2024 Height-cm 185.42 cm 10/20/2024 Weight-kg 108.86 kg 10/20/2024 Encounters Encounter Location Date Provider Diagnosis [address] [id number] 10/20/2024 YOGI HUANG Acquired keratosis [keratoderma] palmaris et plantaris L85.1 ; Metatarsalgia of right foot M77.41 ; Atherosclerosis of [place] arteries of extremities with intermittent claudication, bilateral legs I70.213 and Pain in right foot M79.671 Assessments Encounter Date Diagnosis (ICD Code) Assessment Notes Treatment Notes Treatment Clinical Notes Section Notes 10/20/2024 Acquired keratosis [keratoderma] palmaris et plantaris [...] still in good repair and fit well 10/20/2024 Atherosclerosis of [place] arteries of extremities with intermittent claudication, bilateral legs (ICD-10 - I70.213) Check and protect LE bilateral daily. Call if any changes or concerns. 10/20/2024 Pain in right foot (ICD-10 - M79.671) Patient was instructed to try an OTC topical pain reliever/anti-i nflammatory such as Voltaren Gel, Aspercreme with Lidocaine, or Biofreeze etc over the affected areas. Spot test on hand or somewhere visible prior to starting to watch for possible rash/allergic reaction. Ice and rest recommended as well Plan Of Treatment Treatment Notes Assessment Notes Acquired keratosis [keratode rma] palmaris et plantaris A total of 2 corns or calluses, as described in the note above, were cut and pared utilizing a #15 blade Metatarsalgia of right foot Discussed ne ed to use orthotics. He says he has several pairs. He will bring them to check if they are still in good repair and fit well Atherosclerosis of [place] ar teries of extremities with intermittent claudication, bilateral legs Check and protect LE bilateral daily. Call if any changes or concerns. Pain in right foot Patient was instruct ed to try an OTC topical pain reliever/anti-inflammatory such as Voltaren Gel, Aspercreme with Lidocaine, or Biofreeze etc over the affected areas. Spot test on hand or somewhere visible prior to starting to watch for possible rash/allergic reaction. Ice and rest recommended as well Next Appt Details Follow Up: 3 Months, Reason: General Care Provider Name:YOGI Bassem HUYNH, 12/29/2024 01:10:00 PM, [address] [place] [address], [phone], Progress Notes * ADRIANKOREY RYAN ADOB:1945 (79 yo M)Acc No.[id number]:10/20/2024 Patient: KOREY BE A Provider: Bam HUANG :1945 A ge:79 Y S ex:Male Date:10/20/2024 Address:[address] [place] [address] Subjective: * Chief Complaints: * 1 . *Callus Care. * HPI: H PI: New Complaint E stablished patient presents with a new complaint., Patient complains of an issue to a spot on the left 2nd digit between the great toe. He states that the spot has been there for about a month. It is a possible wart or callus. Patient is here for callus care on the left foot. , MA: phillip. * ROS: G eneral [...] sodium 20 MG Oral Tablet *Reorder from [employer] for eRx and Interaction Alerts*, Unknown Osmotic 24 HR nifedipine 30 MG Extended Release Oral Tablet ORAL , Notes to Pharmacist: Osmotic 24 HR nifedipine 30 MG Extended Release Oral TabletOriginal MedicationOsmotic 24 HR nifedipine 30 MG Extended Release Oral Tablet *Reorder from [employer] for eRx and Interaction Alerts*, Unknown quinapril 10 MG Oral Tablet ORAL , Notes to Pharmacist: quinapril 10 MG Oral TabletOriginal Medicationquinapril 10 MG Oral Tablet *Reorder from [employer] for eRx and Interaction Alerts*, Unknown ubidecarenone 100 MG Oral Capsule ORAL , Notes to Pharmacist: ubidecarenone 100 MG Oral CapsuleOriginal Medicationubidecarenone 100 MG Oral Capsule *[facility] for [facility]Rx and Interaction Alerts*, Medication List [...] inversion, and eversion in bilateral lower extremities. Pain on palpation d iffusely across forefoot right with mild non pitting edema. Assessment: * Assessment: 1. M etatarsalgia of right foot - M77.41 (Primary) 2 . A cquired keratosis [keratoderma] palmaris et plantaris - L85.1 3 . A therosclerosis of [place] arteries of extremities with intermittent claudication, bilateral legs - I70.213 4 . P ain in right foot - M79.671 Plan: * Treatment: 2. A cquired keratosis [keratoderma] palmaris et plantaris Notes: A total of 2 corns or calluses, as described in the note above, were cut and pared utilizing a #15 blade 3. A therosclerosis of [place] arteries of extremities with intermittent claudication, bilateral legs Notes: Check and protect LE bilateral daily. Call if any changes or concerns. 4. P ain in right foot Notes: Patient was instructed to try an OTC topical pain reliever/anti-inflammatory such as Voltaren Gel, Aspercreme with Lidocaine, or Biofreeze etc over the affected areas. Spot test on hand or somewhere visible prior to starting to watch for possible rash/allergic reaction. Ice and rest recommended as well * Follow Up: 3 Months (Reason: General Care) * Billing Information: * Visit Code: 44271 Office Visit, Est Pt., Level 3. 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 He states that the spot has been there for about a month. It is a possible wart or callus. Patient is here for callus care on the left foot. , MA: mca Examination Category Sub-Category Detail Notes Category Not es Dermatologic Skin findings: Skin is thin, at rophic and lacking pedal hair Hypertrophic / hyperkeratotic lesion: pl adrianna aspect of the right 1st and 5th [...] inversion, and eversion in bilateral lower extremities Pain on palpation diffusely across for efoot right with mild non pitting edema
== END 2024-12-12 10:03 | disposition home or self-care (01) ==
LOC: CHSIMG 10:03
PROVIDERS: PCP Internal Medicine; Visit Provider Internal Medicine
DX: M25.551 Pain in right hip (principal)
CPT/HCPCS: 73502

== ENCOUNTER 2024-12-29 15:31 | Outpatient (CLI) | payer MEDICARE, SELFPAY ==
--- NOTE | ~2024-12-29 | MR_ITS ---
MRI of the right hip Clinical history: Pain Technique: Coronal T1-weighted, T2-weighted, and proton-density fat-sat images, and axial T1-weighted and proton-density fat-sat images were acquired through the pelvis. Coronal T2-weighted images and c oronal, axial, and sagittal proton-density fat-sat images were acquired through the right hip. Findings: There is no fracture or osteoporosis of either hip. Bone marrow signals in the proximal fem ora and pelvic bones are unremarkable. There is diffuse moderate to high-grade chondromalacia the rig ht hip joint with mild osteophyte formation at the femoral head neck junction acetabular margins. The re is small right hip joint effusion, likely reactive. There is extensive degenerative tearing of the superolateral right acetabular labrum. There is minimal chondromalacia of the left hip joint. No left hip joint effusion. SI joints appear i ntact. There is high-grade tear of the right gluteus medius tendon which is retracted with surrounding fluid edema. Remaining musculature and tendons about the pelvis and right hip are intact. IMPRESSION: High-grade, probable complete tear of the right gluteus medius tendon with retraction and surrounding fluid/edema. Moderate right hip joint osteoarthritis. Minimal left hip joint osteoarthritis. 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 Reviewed, dictated and finalized at location M. IMPRESSION: High-grade, probable complete tear of the right gluteus medius tendon with retr action and surrounding fluid/edema. Moderate right hip joint osteoarthritis. Minimal left hip joint osteoarthritis. 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
--- OUTSIDE RECORDS SUMMARY | 2024-12-29 15:37 | XMS_ITS | Encounter Summary ---
Author Organization [facility] Address [facility] [place] [address] Care Team Providers Care Flask Carrier Name Role Phone Kaden Green MD Primary Care Provider [phone] Maia Plummer APRN, YOUTH ASSOCIATE-C Unavailable Lavell Valentino MD Unavailable [phone] Encounter Details Date Type Department Care Team (Late st Contact Info) Description 04/24/2020 Prep for Procedure [facility] [place] [place] [id number] Twan Vásquez, DPM [address] [address] Social History Tobacco Use Types Packs/Day Years Used Date Smoking Tobacco: Former Cigarettes Smokeless Tobacco: Former Comments:over 20 years quit Alcohol Use Standard Drinks/Week Comments Not Currently 0 (1 standard drink = 0.6 oz pur e alcohol) very rarely Sex and Gender Information Value Date Recorded Sex Assigned at Not on file Legal Sex Male 11:43 AM TOLL GATE KEEPER Gender Identity Not on file Sexual Orientation Not on file COVID-19 Exposure Response Date Recorded In the last month, have you been in contact with someone who was confirmed or suspected to have Coronavirus / COVID-19? No / Unsure 04/24/2020 6:49 AM TOLL GATE KEEPER documented as of this encounter Plan of Treatment Not on file documented as of this encounter Results * PRE-SURGICAL/PRE-PROCEDURE CORONAVIRUS (COVID 19) (04/21/2020 9:02 AM TOLL GATE KEEPER) CORONAVIRUS SARS COV 2 PCR (RESP) NOT DETECTED NOT DETECTED 04/22/2020 5:53 PM TOLL GATE KEEPER [facility] Comment: A Not Detected (negative) test result [...] providers and patients using the following websites: https://www.[facility]/home/Covid-19/HCP/NAAT/fact-sheet2 https://www.[facility].Crowdcare/home/Covid-19/Patients/NAAT/ fact-sheet2 This test has been authorized by the FDA under an Emergency Use Authorization (EUA) for use by authorized laboratories. Due to the current public health emergency, [facility] is receiving a high volume of samples [...] about COVID-19 can be found at the [facility] website: www.[facility].C[facility]dcare/Covid19. Test performed at [facility] [address] [place] [address] Director: TAMMY RDZ DO,MPH FIRST TEST NO 04/21/2020 10:46 AM [facility] EMPLOYED IN [facility] NO 04/21/2020 10:46 AM TOLL GATE KEEPER [facility] SYMPTOMATIC DEFINED BY CDC NO 04/21/2020 10:46 AM TOLL GATE KEEPER [facility] DATE OF SYMPTOM ONSET NO 04/21/2020 11:51 AM [facility] HOSPITALIZATION STATUS NO 04/21/2020 10:46 AM TOLL GATE KEEPER [facility] PATIENT IN ICU NO 04/21/2020 10:46 AM [facility] RESIDENT OF [facility] NO 04/21/2020 10:46 AM TOLL GATE KEEPER [facility] NOT 04/21/2020 11:51 AM [facility] PATIENT'S RACE WHITE OR 04/21/2020 10:46 AM [facility] ETHNICITY NONHISPANIC 04/21/2020 10:46 AM [facility] SOURCE (QST) NASOPHARYNGEAL SWAB 04/21/2020 10:46 AM [facility] NASOPHARYNGEAL SWAB / Unknown 04/21/2020 9:02 AM TOLL GATE KEEPER us Twan ALVESM MICROBIOLOGY - GENERAL ORDER ALMAS Final Result [facility] [address] [place] [address], [place] [phone] [facility] [address] [place] [address], documented in this encounter Visit Diagnoses Diagnosis Preoperative testing- Primary Preoperative examination, unspecified documented in this encounter Care Teams Flask Carrier Relationship Specialty Start Date End Date Kaden Green MD [address] [place] [address] PCP - General INTERNAL MEDICINE 04/24/20 Maia Plummer APRN, YOUTH ASSOCIATE-C [address] [facility] [address] [place] [phone] NURSE PRACTITIONER 12/19/22 Lavell Valentino MD [address] [place] [phone] Consulting Physician CARDIOVASCULAR DISEASE 12/19/22 documented as of this encounter
--- OUTSIDE RECORDS SUMMARY | 2024-12-29 15:37 | XMS_ITS | Clinical Summary ---
Author Organization [facility] Address [facility] [place] [address] Care Team Providers Care Core Winder Machine Operator Name Role Phone Kaden Green MD Primary Care Provider Maia Plummer APRN, FOREST LAW AND POLICY PROFESSOR-C Unavailable Lavell Valentino MD Unavailable [phone] Allergies Active Allergy Reactions Criticality Noted Date [...] on file Legal Sex Male 11:43 AM VENEER DRIER Gender Identity Not on file Sexual Orientation Not on file Last Filed Vital Signs Vital Sign Reading Time Taken Comments Blood Pressure 146/84 12/18/2022 11:35 AM CDT bp recheck Pulse 65 12/18/2022 9:19 AM CDT Temperature 36.2 C (97.2 F) 04/24/2020 12:20 PM VENEER DRIER Respiratory Rate 16 12/18/2022 9:19 AM CDT [...] this topic Medical Devices Implanted Type Area Dog Pound Attendant Device Identifier Shelf Expiration Date Model / Serial / Lot 3.0 X 14 Asnis Micro Screw Implanted:Qty: 1 on 04/24/2020 by Twan Vásquez DPM at [facility] Screw Right: Foot [employer]IE [id number] / / [id number] Asnis Screw Implanted:Qty: 2 on 04/24/2020 by Twan Vásquez DPM at [facility] Screw Right: Foot [employer] [id number] / / Easyclip [employer] Compression Staple Implanted:Qty: 1 on 04/24/2020 by Twan Vásquez DPM at [facility] Staple Right: Foot [employer] 10/15/2024 [id number] / / [id number] Post 2.0 Implanted:Qty: 2 on 04/24/2020 by Twna Vásquez DPM at [facility] Right: Foot [employer] [id number] / / Insurance [employer] Care Teams Core Winder Machine Operator Relationship Specialty Start Date End Date Kaden Green MD [address] [place] [address] PCP - General INTERNAL MEDICINE 04/24/20 Maia Plummer APRN, FOREST LAW AND POLICY PROFESSOR-C [address] [facility] [address] [place] [phone] NURSE PRACTITIONER 12/19/22 Lavell Valentino MD [address] [place] [address] Consulting Physician CARDIOVASCULAR DISEASE 12/19/22
== END 2024-12-29 15:32 | disposition home or self-care (01) ==
LOC: CHSIMG 15:33
PROVIDERS: PCP Internal Medicine; Visit Provider Internal Medicine
DX: M25.551 Pain in right hip (principal); S76.011A Strain of muscle, fascia and tendon of right hip, initial encounter; M79.89 Other specified soft tissue disorders; M16.0 Bilateral primary osteoarthritis of hip
CPT/HCPCS: 73721